=== PATIENT | female | born 1945 | race Caucasian/White ===

== ENCOUNTER → 2018-11-20 | Outpatient (CLI) | payer BC, MEDICARE ==
[~2018-11-20] MED LIST: CALC-80 PO; DIPH25TA82 PO; FLAX100011 PO; FLUT16SP22 NSEACH; GABA-488 PO; LORA10CA PO; MELO-195 PO; MULT-608 PO; OMEG1CAP51 PO; OXYC-12 PO; PNT40TEC PO; RANI150C11 PO; SIMV20TA3 PO; TRAM50TA2 PO; VITA1CAP21 PO
--- NOTE | 2018-11-20 10:43 | Diagnostic Imaging Report ---
Indication: Worsening pain. Findings: The severe glenohumeral arthritis with bone on bone and joint space obliteration essentially present with articular sclerosis, osteophytes and prominent subcortical cysts in the humeral head. AC joint appeared unremarkable. No opaque loose body is found. Impression: Severe arthritic changes to the glenohumeral joint Dictated by: Dictated on workstation # [id number]
== END ==
LOC: RAD FS 10:16
PROVIDERS: ATTEND Nurse Practitioner
DX: M19.012 Primary osteoarthritis, left shoulder (principal)
CPT/HCPCS: 73030

== ENCOUNTER 2019-08-30 14:55 | Emergency (ER) | payer BC ==
[~2019-08-30] VITALS: Ht 149 cm; Wt 84.0 kg
[~2019-08-30 14:55] MED LIST changes: -NS IV 500 ML 500 ML ONE
[2019-08-30 15:56] LABS: BASOPHILS % (AUTO) 0 % (0-10); EOSINOPHILS # (AUTO) 0.1 10^3/uL (0.0-0.3); EOSINOPHILS % (AUTO) 1 % (0-10); HEMATOCRIT 29 % (35-52); HEMOGLOBIN 7.9 G/DL (11.5-16.0); LYMPHOCYTES # (AUTO) 0.8 X 10^3 (1.0-4.0); LYMPHOCYTES % (AUTO) 8 % (12-44); MEAN CORPUSCULAR HEMOGLOBIN 18 PG (25-34); MEAN CORPUSCULAR HGB CONC 27 G/DL (32-36); MEAN CORPUSCULAR VOLUME 68 FL (80-99); MEAN PLATELET VOLUME 9.1 FL (7.4-10.4); MONOCYTES # (AUTO) 0.5 X 10^3 (0.0-1.0); MONOCYTES % (AUTO) 5 % (0-12); NEUTROPHILS % (AUTO) 86 % (42-75); PLATELET COUNT 265 10^3/uL (130-400); RED CELL DISTRIBUTION WIDTH 20.4 % (10.0-14.5); WHITE BLOOD COUNT 10.5 10^3/uL (4.3-11.0)
[2019-08-30 16:07] LABS: PROTHROMBIN TIME PATIENT 14.1 SEC (12.2-14.7)
[2019-08-30 16:09] LABS: ALANINE AMINOTRANSFERASE 12 U/L (0-55); ALBUMIN 4.2 GM/DL (3.2-4.5); ALKALINE PHOSPHATASE 54 U/L (40-136); BILIRUBIN,TOTAL 0.3 MG/DL (0.1-1.0); BUN/CREATININE RATIO 16; CALCIUM 9.3 MG/DL (8.5-10.1); CARBON DIOXIDE 27 MMOL/L (21-32); CHLORIDE 107 MMOL/L (98-107); GFR ESTIMATED > 60; GLUCOSE 134 MG/DL (70-105); POTASSIUM 3.4 MMOL/L (3.6-5.0); SODIUM 146 MMOL/L (135-145); TOTAL PROTEIN 6.6 GM/DL (6.4-8.2)
--- NOTE | 2019-08-30 16:16 | Diagnostic Imaging Report ---
PROCEDURE: CT head and CT cervical spine without contrast. TECHNIQUE: Multiple contiguous axial images were obtained through the brain and cervical spine without the use of intravenous contrast. Sagittal and coronal reformations through the cervical spine were then performed. Auto Exposure Controls were utilized during the CT exam to meet ALARA standards for radiation dose reduction. INDICATION: Fall. COMPARISON: No prior studies are available for comparison. FINDINGS: CT HEAD: Ventricles and sulci are within normal limits. Moderate periventricular hypodensity is noted consistent with chronic microvascular ischemia. There is no sulcal effacement or midline shift. No acute intra-axial or extra-axial hemorrhage is detected. Cisterns are patent. Visualized paranasal sinuses are clear. IMPRESSION: Changes of chronic microvascular ischemia. No acute intracranial process is detected. CT CERVICAL SPINE: Alignment is normal. There is multilevel degenerative disc disease with variable disc space narrowing and marginal spurring. No fractures are seen. Prevertebral tissues are within normal limits. Odontoid is intact. IMPRESSION: No acute bony abnormality is detected. Dictated by: Dictated on workstation # [id number]
[2019-08-30 16:19] LABS: ANISOCYTOSIS MODERATE; BASOPHILS % (MANUAL) 1 %; EOSINOPHILS % (MANUAL) 1 %; HYPOCHROMASIA MODERATE; LYMPHOCYTES % (MANUAL) 8 %; MICROCYTOSIS MARKED; MONOCYTES % (MANUAL) 7 %; NEUTROPHILS % (MANUAL) 83 %; POIKILOCYTOSIS SLIGHT; POLYCHROMASIA SLIGHT
--- NOTE | 2019-08-30 16:20 | Diagnostic Imaging Report ---
INDICATION: Fall. Confusion. FINDINGS: Portable chest. There is mild cardiomegaly. The lungs are well aerated. There are no infiltrates. No evidence of pulmonary edema. No pneumothorax or pleural effusion. There is moderate scoliosis. IMPRESSION: Cardiomegaly and scoliosis without acute change. Dictated by: Dictated on workstation # [id number]
[2019-08-30 17:06] LABS: BILIRUBIN,URINE NEGATIVE (NEGATIVE); CLARITY,URINE CLEAR; COLOR,URINE YELLOW; GLUCOSE, URINE (UA) NEGATIVE (NEGATIVE); KETONES,URINE NEGATIVE (NEGATIVE); LEUKOCYTE ESTERASE ,URINE NEGATIVE (NEGATIVE); NITRITE,URINE NEGATIVE (NEGATIVE); PH,URINE 7.5 (5-9); PROTEIN,URINE NEGATIVE (NEGATIVE)
[2019-08-30 17:15] LABS: BACTERIA,URINE NEGATIVE /HPF; WBC,URINE RARE /HPF
--- NOTE | 2019-08-30 18:29 | ED General ---
General Chief Complaint: Head/Cervical Problems Stated Complaint: FALL/HEAD INJ Nursing Triage Note: PATIENT STATES THAT SHE FELL TWICE TODAY, FAMILY STATES THAT SHE IS HAVING TROUBLE PUTTING WORDS TOGETHER AND IS CONFUSED WHICH IS VERY OUT OF THE ORDINARY FOR HER. Nursing Sepsis Screen: No Definite Risk Source of Information: Patient Exam Limitations: No Limitations History of Present Illness Date Seen by Provider: Aug 30, 2019 Time Seen by Provider: 16:30 Initial Comments To Er by POV with c/o fall x2 today related to left leg "giving out". Hx of low back pain with intermittent sciatica down left side. Has had intermittent confusion. Timing/Duration: 12-24 Hours Severity: Moderate Associated Systoms: Denies Symptoms Allergies and Home Medications Allergies Coded Allergies: No Known Drug Allergies (Unverified , 07/30/14) Home Medications Calcium Carbonate/Vitamin D3 1 Each Tablet, 1 TAB PO BID, (Reported) Diphenhydramine Hcl 25 Mg Tablet, 25 MG PO BID, (Reported) Flaxseed 1,000 Mg Capsule, 1,000 MG PO DAILY, (Reported) Fluticasone Propionate 16 Gm Naspr, 2 SPRAYS NSEACH DAILY, (Reported) Gabapentin 300 Mg Capsule, 300 MG PO TID, (Reported) Loratadine 10 Mg Capsule, 10 MG PO DAILY, (Reported) Lampe-3 Fatty Acids/Fish Oil 1 Each Capsule, 1 EACH PO DAILY, (Reported) Oxycodone Hcl/Acetaminophen 1 Each Tablet, 1 TAB PO Q4H PRN for PAIN, (Reported) PRN PAIN Pantoprazole Sod 40 Mg Tab, 40 MG PO DAILY, (Reported) Ranitidine Hcl 150 Mg Capsule, 150 MG PO HS, (Reported) Simvastatin 20 Mg Tablet, 20 MG PO HS, (Reported) Tramadol Hcl 50 Mg Tablet, 50 MG PO Q6H PRN for PAIN, (Reported) PRN PAIN Vitamin B Complex 1 Cap Capsule, 1 CAP PO DAILY, (Reported) Patient Home Medication List Home Medication List Reviewed: Yes Review of Systems Review of Systems Constitutional: see HPI EENTM: see HPI Respiratory: no symptoms reported Cardiovascular: no symptoms reported Genitourinary: no symptoms reported Musculoskeletal: no symptoms reported Skin: no symptoms reported Psychiatric/Neurological: No Symptoms Reported Hematologic/Lymphatic: No Symptoms Reported Past Wzsteuu-Thzxbs-Wyhhqv Hx Patient Social History Alcohol Use: Denies Use Recreational Drug Use: No Smoking Status: Never a Smoker 2nd Hand Smoke Exposure: No Recent Foreign Travel: No Contact w/Someone Who Travel: No Recent Infectious Disease Expo: No Immunizations Up To Date Date of Pneumonia Vaccine: Jun 29, 2011 Past Medical History Surgeries: Yes (breast lumpectomy) Respiratory: No Cardiac: No Neurological: No Gastrointestinal: Yes (constipation) Musculoskeletal: Yes Endocrine: Yes Blood Disorders: No Physical Exam Vital Signs Vital Signs - First Documented 08/30/19 15:17 Temp 36.7 Pulse 55 Resp 20 B/P (MAP) 143/66 (91) Pulse Ox 97 Capillary Refill : Less Than 3 Seconds Height, Weight, BMI Height: 5'" Weight: 185lbs. oz. 83.320164hl; 37.00 BMI Method: General Appearance: No Apparent Distress, WD/WN, Other (GCS 15 alert and oriented pleasant no confusion conversation appropriate) Eyes: Bilateral Eye Normal Inspection, Bilateral Eye PERRL, Bilateral Eye EOMI HEENT: PERRL/EOMI, TMs Normal Neck: Full Range of Motion, Normal Inspection Respiratory: No Accessory Muscle Use, No Respiratory Distress Cardiovascular: Regular Rate, Rhythm, Normal Peripheral Pulses Gastrointestinal: Normal Bowel Sounds, Non Tender, Soft Extremity: Normal Capillary Refill, Normal Inspection Neurologic/Psychiatric: Alert, Oriented x3 Skin: Normal Color, Warm/Dry Progress/Results/Core Measures Suspected Sepsis Recent Fever Within 48 Hours: No Infection Criteria Present: None New/Unexplained Altered Menta: Yes Sepsis Screen: No Definite Risk SIRS Temperature: Pulse: 55 Respiratory Rate: 20 Laboratory Tests 08/30/19 15:30: White Blood Count 10.5 Blood Pressure 143 /66 Mean: 91 Laboratory Tests 08/30/19 15:30: Creatinine 0.70, INR Comment 1.0, Platelet Count 265, Total Bilirubin 0.3 Results/Orders Lab Results Laboratory Tests Test 08/30/19 15:30 08/30/19 17:00 Range/Units White Blood Count 10.5 4.3-11.0 10^3/uL Red Blood Count 4.34 L 4.35-5.85 10^6/uL Hemoglobin 7.9 L 11.5-16.0 G/DL Hematocrit 29 L 35-52 % Mean Corpuscular Volume 68 L 80-99 FL Mean Corpuscular Hemoglobin 18 L 25-34 PG Mean Corpuscular Hemoglobin Concent 27 L 32-36 G/DL Red Cell Distribution Width 20.4 H 10.0-14.5 % Platelet Count 265 130-400 10^3/uL Mean Platelet Volume 9.1 7.4-10.4 FL Neutrophils (%) (Auto) 86 H 42-75 % Lymphocytes (%) (Auto) 8 L 12-44 % Monocytes (%) (Auto) 5 0-12 % Eosinophils (%) (Auto) 1 0-10 % Basophils (%) (Auto) 0 0-10 % Neutrophils # (Auto) 9.0 H 1.8-7.8 X 10^3 Lymphocytes # (Auto) 0.8 L 1.0-4.0 X 10^3 Monocytes # (Auto) 0.5 0.0-1.0 X 10^3 Eosinophils # (Auto) 0.1 0.0-0.3 10^3/uL Basophils # (Auto) 0.0 0.0-0.1 10^3/uL Neutrophils % (Manual) 83 % Lymphocytes % (Manual) 8 % Monocytes % (Manual) 7 % Eosinophils % (Manual) 1 % Basophils % (Manual) 1 % Polychromasia SLIGHT Hypochromasia MODERATE Poikilocytosis SLIGHT Anisocytosis MODERATE Microcytosis MARKED Prothrombin Time 14.1 12.2-14.7 SEC INR Comment 1.0 0.8-1.4 Sodium Level 146 H 135-145 MMOL/L Potassium Level 3.4 L 3.6-5.0 MMOL/L Chloride Level 107 98-107 MMOL/L Carbon Dioxide Level 27 21-32 MMOL/L Anion Gap 12 5-14 MMOL/L Blood Urea Nitrogen 11 7-18 MG/DL Creatinine 0.70 0.60-1.30 MG/DL Estimat Glomerular Filtration Rate > 60 BUN/Creatinine Ratio 16 Glucose Level 134 H 70-105 MG/DL Calcium Level 9.3 8.5-10.1 MG/DL Corrected Calcium 9.1 8.5-10.1 MG/DL Total Bilirubin 0.3 0.1-1.0 MG/DL Aspartate Amino Transf (AST/SGOT) 13 5-34 U/L Alanine Aminotransferase (ALT/SGPT) 12 0-55 U/L Alkaline Phosphatase 54 40-136 U/L Total Protein 6.6 6.4-8.2 GM/DL Albumin 4.2 3.2-4.5 GM/DL Urine Color YELLOW Urine Clarity CLEAR Urine pH 7.5 5-9 Urine Specific [place] 1.010 L 1.016-1.022 Urine Protein NEGATIVE NEGATIVE Urine Glucose (UA) NEGATIVE NEGATIVE Urine Ketones NEGATIVE NEGATIVE Urine Nitrite NEGATIVE NEGATIVE Urine Bilirubin NEGATIVE NEGATIVE Urine Urobilinogen 0.2 < = 1.0 MG/DL Urine Leukocyte Esterase NEGATIVE NEGATIVE Urine RBC (Auto) 1+ H NEGATIVE Urine RBC 10-25 H /HPF Urine WBC RARE /HPF Urine Squamous Epithelial Cells NONE /HPF Urine Crystals NONE /LPF Urine Bacteria NEGATIVE /HPF Urine Casts NONE /LPF Urine Mucus NEGATIVE /LPF Urine Culture Indicated NO My Orders Orders - MARK GASPAR APRN Ct Head/Cervical Spine Wo (08/30/19 15:47) Chest 1 View, Ap/Pa Only (08/30/19 15:47) Cbc With Automated Diff (08/30/19 15:47) Comprehensive Metabolic Panel (08/30/19 15:47) Ua Culture If Indicated (08/30/19 15:47) Ed Iv/Invasive Line Start (08/30/19 15:47) Protime With Inr (08/30/19 15:47) Manual Differential (08/30/19 15:30) Red Cells Leukocytes Reduced (08/30/19 18:19) Type And Screen (08/30/19 18:19) Vital Signs/I&O 08/30/19 15:17 Temp 36.7 Pulse 55 Resp 20 B/P (MAP) 143/66 (91) Pulse Ox 97 Capillary Refill : Less Than 3 Seconds Blood Pressure Mean: 91 POS Departure Communication (Admissions) Spoke with Dr. Fischer, we will give one unit of red cells down here in the emergency room, DC to home. Patient has a history of anemia, states she has had have blood transfusion in the past, she is taking an iron supplement. 195-called report the patient has an antibody, it'll be one more hour before the blood is ready, we'll discharge her from ER since her vitals are stable, mentating well, and it sounds like this is chronic. I will have her go from here up to the medical floor directly for a unit of packed red cells to be transfused tonight outpatient on fourth floor then discharged home Impression Primary Impression: Symptomatic anemia Disposition: 01 HOME, SELF-CARE Condition: Stable Departure-Patient Inst. Decision time for Depature: 18:29 Referrals: JENELLE ROONEY MD (PCP/Family) Primary Care Physician Patient Instructions: NO INSTRUCTIONS GIVEN Add. Discharge Instructions: 1. Go directly from here to room 512 upstairs to receive a unit of red blood cells to be transfused, once that has transfused, barring any complications you will be discharged home tonight..All discharge instructions reviewed with patient and/or family. Voiced understanding. Copy Copies To 1: JENELLE ROONEY MD, PETER J APRN Aug 30, 2019 18:29 POS
[2019-08-30 20:09] VITALS: BP 126/66
--- NOTE | 2019-08-30 20:09 | NUR ---
AFTER DISCHARGE PT WILL GO TO ROOM 512 FOR OUTPATIENT BLOOD TRANSFUSION. REPORT TO MEMO SHETTY.
--- OUTSIDE RECORDS SUMMARY | 2019-09-25 23:54 | XMS REPORT | Encounter Summary ---
Author Author [facility] Organization [facility] Address Unknown Phone Unavailable Care Team Providers Care Smalltalk Developer Name Role Phone Raj Don PCP Encounter Details Care Team Description Date Type Department ProviderDedrick MD [address] [place] [address] 09/12/2019 Orders Only [facility] [address] [facility] [address] [place] [address] Social History Date Tobacco Use Types Packs/Day Years Used Never Assessed Sex Assigned at Date Recorded Not on file Industry Job Start Date Occupation Not on file Not on file Not on file Travel End Travel History Travel Start No recent travel history available. documented as of this encounter Plan of Treatment Care Team Description Date [place] [address] [id number] 10/18/2019 Initial consult Medical Oncology documented as of this encounter Procedures Comments Procedure Name Priority Date/Time Associated Diag nosis LAB OUTSIDE RECORD Routine 09/12/2019 documented in this encounter Results * Lab Outside Record (09/12/2019) Specimen Blood Narrative Performed At This result has an attachment that is n ot available. documented in this encounter Visit Diagnoses Not on filedocumented in this encounter
--- OUTSIDE RECORDS SUMMARY | 2019-09-25 23:54 | XMS REPORT | Clinical Summary ---
Author Author [facility] Organization [facility] Address Unknown Phone Unavailable Care Team Providers Care Fine Grade Bulldozer Operator Name Role Phone Canelo Donwell PCP Allergies Not on File Medications Not on file Active Problems Not on file Encounters Care Team Description Date Type Specialty Dedrick Harris MD 09/12/2019 Orders Only Medical Oncology No, Ordering D, DO 09/12/2019 Documentation Medical Oncology from Last 3 Months Social History Date Tobacco Use Types Packs/Day Years Used Never Assessed Sex Assigned at Date Recorded Not on file Industry Job Start Date Occupation Not on file Not on file Not on file Travel End Travel History Travel Start No recent travel history available. Last Filed Vital Signs Not on file Plan of Treatment Care Team Description Date [place] [address] [address] 10/18/2019 Initial consult Medical Oncology Health Maintenance Due Date Last Done Comments Td # 1945 Colorectal Screening via 1993 Colonoscopy Mammogram Screening 1993 Zoster Vaccine# (1 of 2) 1993 Fall Risk Assessment # 2008 Osteoporosis Screening 2008 Pneumococcal Vaccine: 65+ 2008 Years (1 of 2 - PCV13) Influenza Vaccine (#1) 2019 Procedures Comments Procedure Name Priority Date/Time Associated Diag nosis LAB OUTSIDE RECORD Routine 09/12/2019 from Last 3 Months Results * Lab Outside Record (09/12/2019) Specimen Blood Narrative Performed At This result has an attachment that is n ot available. from Last 3 Months Insurance Type Payer Benefit Subscriber ID Effective Phone Address Plan / Dates Group Medicare MEDICARE MEDICARE xxxxxxxxxxx 2008-P [place] PART A [facility] MAREN xxxxxxxxx 8-P FEDERAL resent [id number] 1 Nimisha Hodges Personal/F Self 1945 [id number] (Home) [place], [place] [address] Advance Directives For more information, please contact: [phone] Patient Tin Pourer Explanation Type Date Recorded Advance Directives and Living Will Power of Medical Tech
--- OUTSIDE RECORDS SUMMARY | 2019-09-25 23:54 | XMS REPORT | Encounter Summary ---
Author Author [facility] Organization [facility] Address Unknown Phone Unavailable Care Team Providers Care Public Relations Coordinator Name Role Phone Canelo Donwell PCP Encounter Details Care Team Description Date Type Department No, Ordering D, DO [phone] 09/12/2019 Documentation [facility] [address] [facility] [address] [place] [address] Social History Date Tobacco Use Types Packs/Day Years Used Never Assessed Sex Assigned at Date Recorded Not on file Industry Job Start Date Occupation Not on file Not on file Not on file Travel End Travel History Travel Start No recent travel history available. documented as of this encounter Plan of Treatment Care Team Description Date [place] [address] [address] [phone] 10/18/2019 Initial consult Medical Oncology documented as of this encounter Visit Diagnoses Not on filedocumented in this encounter
== END 2019-08-30 20:15 | disposition home or self-care (01) ==
LOC: EDUNIT# 14:55 → ER 14:57
DX: D64.9 Anemia, unspecified (principal); Z79.51 Long term (current) use of inhaled steroids
CPT/HCPCS: 36415; 51701; 70450; 71045; 72125; 80053; 81000; 85007; 85027; 85610

== ENCOUNTER → 2019-08-30 | Outpatient (CLI) | payer BC ==
[~2019-08-30] VITALS: Ht 145 cm; Wt 84.1 kg
[2019-08-30] VITALS (8 sets, daily range): BP systolic 106–128; BP diastolic 66–82
[~2019-08-30] MED LIST changes: +NS IV 500 ML 500 ML ONE
--- NOTE | 2019-08-30 20:05 | NUR ---
RECEIVED REPORT FROM MARK GASPAR APRN.
--- NOTE | 2019-08-30 20:29 | NUR ---
PT ARRIVED TO ROOM 512 TO ADMINISTRATION OF 1 UNIT PRBC.
--- NOTE | 2019-08-30 20:46 | NUR ---
RECEIVED CALL FROM LAB THAT 1UNIT PRBC READY TO BE PICKED UP.
--- NOTE | 2019-08-30 20:56 | NUR ---
THIS RN VERIFIED PT NAME, , MEDICAL RECORD NUMBER, BBK ID#, BLOOD TYPE, UNIT NUMBER, BLOOD TYPE OF UNIT, AND COMPATIBILITY W/ BLOOD BANK STAFF. 1UNIT PRBC FOR THIS PT REMOVED FROM BLOOD BANK BY THIS RN.
--- NOTE | 2019-08-30 21:14 | NUR ---
500ML 0.9% NORMAL SALINE REMOVED FROM OMNICELL TO RUN WITH BLOOD ADMINISTRATION. NON-ADMINISTERED ON E-NOV.
--- NOTE | 2019-08-30 21:25 | NUR ---
BLOOD VERIFIED W/ SLIP LASTER DUE TO INABILITY TO SCAN BBK ID BAND.
--- NOTE | 2019-08-30 21:30 | NUR ---
TRANSFUSION OF 1UNIT PRBC STARTED. Addendum: 08/30/19 at 2152 by RUFINO PHLILIPS RN INFUSION BEGAN AT 75ML/HR FOLLOWING INFUSION OF 50ML 0.9% NORMAL SALINE.
--- NOTE | 2019-08-30 21:45 | NUR ---
VS REPEATED AND NOTED TO BE STABLE. INFUSION INCREASED TO 125ML/HR.
[2019-08-31 00:30] VITALS: BP 132/77
--- NOTE | 2019-08-31 00:30 | NUR ---
TRANSFUSION COMPLETE AND POSTTRANSFUSION VS STABLE. SEE VS FLOW SHEET. PT WHEELED OUT TO PERSONAL CONVEYANCE BY MEMO IBRAHIM WITHOUT INCIDENT. PT INSTRUCTED TO FOLLOW UP WITH DR. ROONEY.
--- NOTE | 2019-09-03 02:08 | NUR ---
LATE NOTE ENTRY: 08/30/19 AT 2100: VERBAL CONSENT OBTAINED FROM PT FOR ADMINISTRATION OF BLOOD PRODUCTS. VERBAL CONSENT WITNESSED BY COMMUNITY DEVELOPMENT COORDINATOR.
== END ==
LOC: 4THo 20:07
PROVIDERS: ATTEND Emergency Medicine
DX: E87.71 Transfusion associated circulatory overload (principal)
CPT/HCPCS: 36430; 86850; 86870; 86900; 86901; 86902; 86922

== ENCOUNTER → 2019-11-05 | Outpatient (CLI) | payer BC ==
[2019-11-05 15:33] LABS: BASOPHILS % (AUTO) 1 % (0-10); EOSINOPHILS # (AUTO) 0.2 10^3/uL (0.0-0.3); EOSINOPHILS % (AUTO) 3 % (0-10); HEMATOCRIT 39 % (35-52); HEMOGLOBIN 11.8 G/DL (11.5-16.0); LYMPHOCYTES % (AUTO) 16 % (12-44); MEAN CORPUSCULAR HEMOGLOBIN 25 PG (25-34); MEAN CORPUSCULAR HGB CONC 31 G/DL (32-36); MEAN CORPUSCULAR VOLUME 83 FL (80-99); MONOCYTES # (AUTO) 0.4 X 10^3 (0.0-1.0); MONOCYTES % (AUTO) 7 % (0-12); NEUTROPHILS # (AUTO) 4.6 X 10^3 (1.8-7.8); NEUTROPHILS % (AUTO) 73 % (42-75); PLATELET COUNT 223 10^3/uL (130-400); RED CELL DISTRIBUTION WIDTH 18.8 % (10.0-14.5); WHITE BLOOD COUNT 6.3 10^3/uL (4.3-11.0)
[2019-11-05 15:53] LABS: ALANINE AMINOTRANSFERASE 20 U/L (0-55); ALBUMIN 4.1 GM/DL (3.2-4.5); ALKALINE PHOSPHATASE 44 U/L (40-136); BILIRUBIN,TOTAL 0.4 MG/DL (0.1-1.0); BUN/CREATININE RATIO 14; CARBON DIOXIDE 29 MMOL/L (21-32); CHLORIDE 104 MMOL/L (98-107); GFR ESTIMATED > 60; GLUCOSE 100 MG/DL (70-105); POTASSIUM 4.2 MMOL/L (3.6-5.0); SODIUM 142 MMOL/L (135-145)
== END ==
LOC: LAB 15:08
PROVIDERS: ATTEND Internal Medicine Hematology & Oncology
DX: C50.212 Malignant neoplasm of upper-inner quadrant of left female breast (principal)
CPT/HCPCS: 36415; 80053; 82378; 85025; 86300

== ENCOUNTER 2021-12-22 13:26 | Outpatient (CLI) | payer BC ==
[~2021-12-22] VITALS: Ht 147.3 cm; Wt 49.0 kg
[2021-12-22] MEDS ORDERED: DIPH25CA79 PO (14:13)
[2021-12-22] MEDS ORDERED: LVF250T PO (14:13)
[2021-12-22] MEDS ORDERED: MELO15TA14 PO (14:13)
[2021-12-22] MEDS ORDERED: SIMV20TA26 PO (14:13)
[2021-12-22] MEDS ORDERED: MORP50CA PO (14:13)
[2021-12-22] MEDS ORDERED: ACET-2840 PO (14:13)
[2021-12-22] MEDS ORDERED: ANAS1TAB50 PO (14:13)
[2021-12-22] MEDS ORDERED: CETI10TA49 PO (14:13)
[2021-12-22] MEDS ORDERED: IRON1TAB95 PO (14:13)
[2021-12-22] MEDS ORDERED: BACL10TA PO (14:13)
[2021-12-23] MEDS ORDERED: HYDR-3817 PO (12:29)
== END 2021-12-22 14:21 ==
LOC: PREOP 13:26
PROVIDERS: ATTEND Surgery
DX: Z01.818 Encounter for other preprocedural examination (principal)

== ENCOUNTER 2021-12-23 11:16 | Day surgery (SDC) | payer BC ==
[~2021-12-23] VITALS: Ht 147.3 cm; Wt 49.0 kg
[2021-12-23] VITALS (12 sets, daily range): BP systolic 96–152; BP diastolic 31–97
[~2021-12-23 11:16] MED LIST changes: +ACET-2840 PO; +ANAS1TAB50 PO; +BACL10TA PO; +CETI10TA49 PO; +DIPH25CA79 PO; +IRON1TAB95 PO; +LVF250T PO; +MELO15TA14 PO; +MORP50CA PO; +SIMV20TA26 PO
[2021-12-23] MEDS ORDERED: ceFAZolin INJECTION 1,000 MG VIAL IV ONE (11:45)
[2021-12-23] MEDS: LACTATED RINGERS 1,000 ML IV PRN ×2 (11:59→15:20)
[2021-12-23] MEDS ORDERED: HYDR-3817 PO (12:29)
[2021-12-23] MEDS ORDERED: morphine INJ 10 MG/ML 1ML (SYR OR VIAL) IVP PRN (12:30)
[2021-12-23] MEDS ORDERED: ONDANSETRON 4 MG/2 ML (SDV) Z0FRAN IVP PRN ×2 (12:30→16:15)
[2021-12-23] MEDS ORDERED: ACETAMINOPHEN 325 MG TABLET PO PRN (12:30)
[2021-12-23] MEDS ORDERED: HYDROcodone/APAP 5 MG/325 MG (LORTAB) TAB PO ONE (12:30)
--- NOTE | 2021-12-23 12:30 | Discharge Inst-Surgical ---
D/C Lap Instructions-KIDO Reconcile Patient Problems Problems Reviewed?: Yes New, Converted, or Re-Newed RX: RX on Chart Follow Up Appt in 2 weeks Activity as tolerated No driving for 24 hours No driving while on pain medications Incentive Spirometry use every 2 hours while awake Regular Diet Symptoms to Report: Fever over 101 degree F, Nausea/Vomiting Infection Signs and Symptoms to report: Increased redness, Foul odor of wound, Increased drainage Bathing instructions: May shower Operative Area Clean/Dry; Keep incision clean/dry If any problems/questions: Contact your physician or go to Emergency Room ISABEL CANNON APRN Dec 23, 2021 12:29
--- NOTE | 2021-12-23 12:31 | Progress Note-Pre Operative ---
Pre-Operative Progress Note H&P Reviewed The H&P was reviewed, patient examined and no changes noted. Date Seen by Provider: Dec 23, 2021 Time Seen by Provider: 12:30 Date H&P Reviewed: Dec 23, 2021 Time H&P Reviewed: 12:25 Pre-Operative Diagnosis: Symptomatic Chronic calculous cholecysitis ISABEL CANNON APRN Dec 23, 2021 12:31
[2021-12-23] MEDS ORDERED: LIDOCAINE/EPI 2% 1:200,00 (XYLOCAINE) 20 ML VIAL ONE (14:06)
[2021-12-23] MEDS ORDERED: proPOfol 200 MG/20 ML (DIPRIVAN) VIAL IV ONE (14:16)
[2021-12-23] MEDS ORDERED: LIDOCAINE PF 2% 5 ML (XYLOCAINE) VIAL ONE (14:16)
[2021-12-23] MEDS ORDERED: fentaNYL INJ 100 MCG/2 ML AMP ONE ×2 (14:16→14:33)
[2021-12-23] MEDS ORDERED: ROCURONIUM 10 MG/ML 5 ML SYRINGE IV ONE (14:16)
[2021-12-23] MEDS ORDERED: fentaNYL INJ 100 MCG/2 ML AMP IVP ONE (14:30)
[2021-12-23] MEDS ORDERED: ONDANSETRON 4 MG/2 ML (SDV) Z0FRAN ONE ×2 (15:02→16:33)
[2021-12-23] MEDS ORDERED: SEVOFLURANE (ULTANE) 15 ML INHAL SOLN ONE (15:41)
[2021-12-23] MEDS ORDERED: GLYCOPYRROLATE 0.2 MG/ML (ROBINUL) 2 ML VIAL ONE (15:46)
[2021-12-23] MEDS ORDERED: NEOSTIGMINE 3 MG/3 ML VIAL ONE (15:46)
--- NOTE | 2021-12-23 15:52 | Progress Note-Post Operative ---
Post-Operative Progess Note Surgeon (s)/Freight Tallier (s) Surgeon SHANNAN AUSTIN MD Freight Tallier: ronny sanchez OFFC SPEC Pre-Operative Diagnosis Symptomatic Chronic calculous cholecysitis Post-Operative Diagnosis same Procedure & Operative Findings Date of Procedure 12/23/21 Procedure Performed/Findings laparoscopic cholecystectomy Anesthesia Type get Estimated Blood Loss Estimated blood loss (mL): minimal Specimens/Packing Specimens Removed gallbladder SHANNAN AUSTIN MD Dec 23, 2021 15:52
--- NOTE | 2021-12-23 16:03 | Anesthesia-General Post-Op ---
General Patient Condition Mental Status/LOC: Same as Preop Cardiovascular: Satisfactory Nausea/Vomiting: Absent Respiratory: Satisfactory Pain: Controlled Complications: Absent Post Op Complications Complications None Follow Up Care/Instructions Patient Instructions None needed. Anesthesia/Patient Condition Patient Condition Patient is doing well, no complaints, stable vital signs, no apparent adverse anesthesia problems. No complications reported per nursing. SUMEET ADDISON CRNA Dec 23, 2021 16:03
[2021-12-23] MEDS ORDERED: morphine INJ 10 MG/ML 1ML (SYR OR VIAL) ONE (16:06)
[2021-12-23] MEDS ORDERED: MEPERIDINE (DEMEROL) INJ 50 MG/ML IVP ONE (16:15)
[2021-12-23] MEDS ORDERED: morphine INJ 10 MG/ML 1ML (SYR OR VIAL) IVP ONE (16:15)
[2021-12-23] MEDS ORDERED: HYDROcodone/APAP 5 MG/325 MG (LORTAB) TAB ONE (17:26)
--- NOTE | 2021-12-23 20:47 | OPERATIVE REPORT ---
DATE OF SERVICE: 12/23/2021 ATTENDING PRIMARY CARE PHYSICIAN: Dr. Raj Don. PREOPERATIVE DIAGNOSIS: Symptomatic chronic calculous cholecystitis. POSTOPERATIVE DIAGNOSIS: Hydrops of the gallbladder. PROCEDURE: Laparoscopic cholecystectomy. SURGEON: Shannan Austin MD TRAILER STEERER: Saul De Los Santos APRN. ANESTHESIA: General endotracheal. ESTIMATED BLOOD LOSS: Minimal. FINDINGS: A stone at the cystic duct and hydrops of the gallbladder. DISPOSITION: The patient tolerated the procedure well. INDICATIONS: The patient is a 76-year-old female who has had a several-year history of what she felt was acid indigestion and gastritis; however, she states that the pain became more significant and radiated towards the back. She also had reported episodes of nausea and vomiting, which became much more frequent as well as more severe. She was seen by her physician. An ultrasound performed, which did show a stone wedged into the cystic duct consistent with chronic calculous cholecystitis. DESCRIPTION OF PROCEDURE: The patient was brought to the operating room, laid supine on the table. After adequate IV pain and sedative medications and general endotracheal intubation, the abdomen was prepped and draped in standard surgical fashion. A 0.5% Marcaine with epinephrine was used to anesthetize overlying skin in the left upper abdominal quadrant and a transverse skin incision made using a 15 blade. An 0 silk suture was applied to the medial aspect of incision for retraction and a Veress needle inserted with a low opening pressure of 0 mmHg and the abdomen was then insufflated to 15 mmHg pressure. The Veress needle removed and a 5 mm XL trocar placed followed by a 5 mm 45-degree angle laparoscope visualizing the peritoneal cavity. A 4-quadrant abdominal exploration was performed. There was a distended gallbladder with mild gallbladder wall thickening. Under direct visualization, we then proceeded to place a supraumbilical 10 mm port after the skin and peritoneal lining were anesthetized using 0.5% Marcaine with epinephrine and a transverse skin incision made using a 15 blade. In a similar manner, a right upper abdominal quadrant 5 mm port was placed. The patient was then placed in reverse Trendelenburg position as well as plane right side up, left side down. The fundus of the gallbladder was then retracted anteriorly and superiorly. The hepatoduodenal ligament was then dissected using blunt dissection as well as electrocautery using the hook instrument as well as a [place] dissector. The entire critical view of safety was identified including the triangle of Calot as well as the cystic duct and artery as the only two structures going into the gallbladder as well as cystic plate behind the proximal gallbladder. A timeout was then taken and the cystic duct and artery were then clipped proximally and distally and cut with EndoShears. The gallbladder was then dissected off the liver bed using electrocautery and hook instrument with visualization of good hemostasis as well as no leaking ducts of Luschka. The gallbladder was removed through the 10 mm port site using an EndoCatch bag. The 10 mm port site fascia and peritoneum were then closed under direct visualization using a Jairo-Suma device and 0 Vicryl suture. The abdomen was desufflated and remaining ports removed. All skin incisions were closed using 4-0 Monocryl running subcuticular sutures. Wounds were then cleaned and covered with Dermabond. The patient tolerated the procedure well. We will start IV normal pain medication as well as a clear liquid diet. Once she is tolerating clears, has good pain control with oral pain medications, ambulating well, we will discharge her home where she will be instructed to do no heavy lifting or exertion for the next two weeks. Job ID: [id number] DocumentID: [id number] Dictated Date: 12/23/2021 15:58:24 Timber Harvester Operator Date: 12/23/2021 20:46:34 Dictated By: SHANNAN AUSTIN MD
== END 2021-12-23 18:20 ==
LOC: SDC 11:16
PROVIDERS: ATTEND Surgery
DX: K80.10 Calculus of gallbladder with chronic cholecystitis without obstruction (principal); K82.8 Other specified diseases of gallbladder; E11.9 Type 2 diabetes mellitus without complications; Z87.891 Personal history of nicotine dependence
CPT/HCPCS: 87081; 94664

== ENCOUNTER 2022-01-22 12:11 | Inpatient (IN) | payer MEDICARE, BC ==
[~2022-01-22] VITALS: Ht 149.9 cm; Wt 60.6 kg
[~2022-01-22 12:11] MED LIST changes: +HYDR-3817 PO
[2022-01-22] MEDS ORDERED: LACTATED RINGERS 1,000 ML IV SCH (18:45)
[2022-01-22] MEDS ORDERED: ONDANSETRON 4 MG/2 ML (SDV) Z0FRAN IVP PRN (18:45)
[2022-01-22] MEDS ORDERED: IOHEXOL 350 MG/ML 100 ML (OMNIPAQUE 350) VIAL IV ONE (19:30)
[2022-01-22] MEDS ORDERED: PIPERACILLIN SODIUM/TAZOBACTAM 4.5 GM in NS (IVPB) 100 ML IV ONE (19:30)
[2022-01-22] MEDS ORDERED: HOLD METFORMIN - RECEIVED CONTRAST 20 ML VIAL IV SCH (19:30)
[2022-01-22] MEDS ORDERED: NS 100 ML (IVPB) BAG IV ONE (19:30)
[2022-01-22 19:43] LABS: CLARITY,URINE CLEAR; COLOR,URINE ORANGE; GLUCOSE, URINE (UA) TRACE (NEGATIVE); KETONES,URINE 1+ (NEGATIVE); LEUKOCYTE ESTERASE ,URINE TRACE (NEGATIVE); NITRITE,URINE NEGATIVE (NEGATIVE); PROTEIN,URINE 2+ (NEGATIVE)
[2022-01-22 19:50] LABS: BILIRUBIN,URINE 2+ (NEGATIVE)
[2022-01-22 19:52] LABS: BACTERIA,URINE LARGE /HPF
--- NOTE | 2022-01-22 20:30 | Progress Note-Pre Operative ---
Pre-Operative Progress Note H&P Reviewed The H&P was reviewed, patient examined and no changes noted. Date Seen by Provider: Jan 22, 2022 Time Seen by Provider: :30 Date H&P Reviewed: Jan 22, 2022 Time H&P Reviewed: :30 Pre-Operative Diagnosis: abdominal pain/distention, leukocytosis SHANNAN AUSTIN MD Jan 22, 2022 20:30
[2022-01-22 21:20] LABS: BASOPHILS # (AUTO) 0.1 10^3/uL (0.0-0.1); BASOPHILS % (AUTO) 0 % (0-10); EOSINOPHILS # (AUTO) 0.2 10^3/uL (0.0-0.3); EOSINOPHILS % (AUTO) 1 % (0-10); HEMATOCRIT 27 % (35-52); HEMOGLOBIN 8.3 g/dL (11.5-16.0); LYMPHOCYTES # (AUTO) 0.6 10^3/uL (1.0-4.0); LYMPHOCYTES % (AUTO) 2 % (12-44); MEAN CORPUSCULAR HEMOGLOBIN 23 pg (25-34); MEAN CORPUSCULAR HGB CONC 30 g/dL (32-36); MEAN CORPUSCULAR VOLUME 76 fL (80-99); MEAN PLATELET VOLUME 9.1 fL (9.0-12.2); MONOCYTES # (AUTO) 0.5 10^3/uL (0.0-1.0); MONOCYTES % (AUTO) 2 % (0-12); NEUTROPHILS # (AUTO) 22.9 10^3/uL (1.8-7.8); NEUTROPHILS % (AUTO) 94 % (42-75); PLATELET COUNT 635 10^3/uL (130-400); WHITE BLOOD COUNT 24.5 10^3/uL (4.3-11.0)
[2022-01-22 21:31] LABS: ALBUMIN 2.1 GM/DL (3.2-4.5); POTASSIUM 5.5 MMOL/L (3.6-5.0)
[2022-01-22 21:32] LABS: CALCIUM 8.1 MG/DL (8.5-10.1)
[2022-01-22 21:33] LABS: TOTAL PROTEIN 5.5 GM/DL (6.4-8.2)
[2022-01-22 21:35] LABS: BILIRUBIN,TOTAL 2.6 MG/DL (0.1-1.0)
[2022-01-22 21:37] LABS: CREATININE SERUM 1.52 MG/DL (0.60-1.30)
[2022-01-22 21:40] LABS: MAGNESIUM 1.9 MG/DL (1.6-2.4)
[2022-01-22 21:43] LABS: LYMPHOCYTES % (MANUAL) 2 %; MONOCYTES % (MANUAL) 4 %; NEUTROPHILS % (MANUAL) 94 %; POLYCHROMASIA MARKED; TARGET CELLS SLIGHT
--- NOTE | 2022-01-22 21:50 | HISTORY AND PHYSICAL ---
DATE OF SERVICE: ATTENDING PRIMARY CARE PHYSICIAN: Dr. Raj Don. HISTORY OF PRESENT ILLNESS: The patient is a 76-year-old female, we had seen recently. She was referred over to us for several year history of what she felt was acid indigestion and gastritis; however, this became more significant and she also developed radiation of pain towards the back. This was also associated with nausea and vomiting. An ultrasound was performed, which did show a stone wedged in the cystic duct consistent with chronic calculous cholecystitis. On 12/23/2021, she underwent a laparoscopic cholecystectomy, was found to have hydrops of the gallbladder. She did well after surgery and was sent home later that day. Emergency Department physician at [facility] contacted us regarding a 1-day history of abdominal pain and distention. She had some laboratory work done and was also found to have a significantly elevated white count at 32.9. She was also found to be anemic with a hemoglobin of 7.6 and hematocrit 28.2. Due to prerenal azotemia and dehydration, she also did have elevated BUN and creatinine at 43 and 1.66 respectively. Her liver function enzymes were normal. Chest x-ray and abdominal x-ray were performed, which did show some dilated loops of small bowel, which may indicate a potential partial small-bowel obstruction. The patient was transferred to our institution due to a lack of general surgery coverage at the initial hospital. Upon examination, the patient does have some abdominal distention; however, since being admitted, she has had two large liquid bowel movements. She does have some abdominal discomfort, which is more diffuse. There are no hernias, no peritoneal signs. She does report some nausea; however, no vomiting. PAST MEDICAL HISTORY: Hypertension, hypercholesterolemia, degenerative joint disease, history of anemia, left breast cancer x2. PAST SURGICAL HISTORY: Left shoulder surgery 21, left lumbar spinal fusion 14, breast lumpectomy 96 and 18 tonsillectomy. ALLERGIES: No known drug allergies. MEDICATIONS: Baclofen 10 mg daily, iron 150 mg daily, anastrozole 1 mg daily, morphine sulfate 15 mg b.i.d., meloxicam 15 mg daily, amlodipine 5 mg daily, lisinopril 10 mg daily. SOCIAL HISTORY: Previous smoker, 50 pack years, quit in 1995. She was drinking alcohol on a daily basis. FAMILY HISTORY: Father, cerebrovascular accident, myocardial infarction. Mother, breast cancer. VITAL SIGNS: Stable. Systolic blood pressure in the 100s, heart rate 90, pulse ox mid 90s on 2 liters nasal cannula. REVIEW OF SYSTEMS: This is an elderly female, who is slightly confused; however, does answer some questions appropriately. She states that she had a sudden onset of abdominal pain starting this morning. She reports that after her laparoscopic cholecystectomy. She had done well and did not have any issues. She states that she developed abdominal distention, crampy pain as well as nausea; however, no vomiting. No cough or sputum production. She did have two loose bowel movements. No red blood per rectum, no dark tarry stools. No fever, chills, no recent inadvertent weight loss. All other review of systems negative. PHYSICAL EXAMINATION: CHEST: Few scattered rales bilaterally. HEART: Regular, no murmurs. EXTREMITIES: No lower extremity edema, negative Homans sign. HEENT: No scleral icterus. NECK: No cervical lymphadenopathy. ABDOMEN: Distended, [id number] diffuse tenderness, voluntary guarding, no rebound. No hernias palpable. SKIN: Warm, dry. ASSESSMENT AND PLAN: A 76-year-old female with a partial small-bowel obstruction with a potential intraabdominal infection. We will repeat labs. A CT scan at her previous institution was not performed due to her dehydration and low GFR. If this does improve, we will proceed with a CT scan of the abdomen and pelvis to further delineate a possible etiology of her symptoms. She also does have a significant leukocytosis and we will empirically start her on Zosyn. If intraabdominal abscess is identified, we will then proceed with likely a diagnostic laparoscopy as well as suction irrigation of any fluid collection or abscess as well as intraperitoneal drain placement. Job ID: [id number] DocumentID: [id number] Dictated Date: 01/22/2022 20:12:33 Plaster Patternmaker Date: 01/22/2022 21:49:33 Dictated By: SHANNAN AUSTIN MD [facility]
[2022-01-22] MEDS ORDERED: NS IV 1000 ML 1,000 ML IV SCH (22:30)
[2022-01-22] MEDS ORDERED: VANCOMYCIN INJECTION 0.1 MG in NS (IVPB) 250 ML IV SCH (22:30)
--- NOTE | 2022-01-22 22:34 | Diagnostic Imaging Report ---
PROCEDURE: CT abdomen and pelvis without contrast. TECHNIQUE: Multiple contiguous axial images were obtained through the abdomen and pelvis without the use of intravenous contrast. Auto Exposure Controls were utilized during the CT exam to meet ALARA standards for radiation dose reduction. INDICATION: Sepsis. Abdominal distention. Concern for bowel obstruction. COMPARISON: None. FINDINGS: The heart is unremarkable. Patchy and consolidative opacities are seen in the bilateral lung bases. Large hiatal hernia is present. There is a micronodular contour of the liver. No focal hepatic lesions are seen. The gallbladder is surgically absent. A large volume of ascites is seen in the abdomen and pelvis. The spleen, pancreas, adrenal glands and kidneys have a normal appearance. There is no pathologically enlarged mesenteric or retroperitoneal adenopathy. The bowel loops are nondilated. The appendix is visualized in the right lower quadrant has a normal appearance. There is no free air. No acute osseous abnormalities. Posterior fusion changes are visualized in the lower lumbar spine. There is left convexity curvature of the lumbar spine. There is calcified aortic and iliac atherosclerotic plaque without aneurysm. The urinary bladder is decompressed with a Dorantes in place. IMPRESSION: 1. Large volume of ascites in the abdomen and pelvis. 2. Cirrhotic morphology of the liver. No focal hepatic lesions. Consider liver protocol CT on an outpatient basis to screen for hepatocellular carcinoma. 3. Patchy and consolidative opacities in the bilateral lung bases. Findings can be seen with atelectasis and/or infection. 4. Large hiatal hernia. Dictated by: Dictated on workstation # [id number]
[2022-01-22] MEDS ORDERED: NS IV 1000 ML 1,000 ML ONE (22:38)
[2022-01-22] MEDS: fentaNYL INJ 100 MCG/2 ML AMP IVP PRN (22:40)
[2022-01-22] MEDS: PIPERACILLIN SODIUM/TAZOBACTAM 4.5 GM in NS (IVPB) 100 ML IV SCH (22:40)
[2022-01-22] MEDS ORDERED: VANCOMYCIN 1 GM/NS 250 ML IVPB IV ONE ×2 (23:15)
[2022-01-23] MEDS ORDERED: NS IV 1000 ML 1,000 ML ONE (00:35)
[2022-01-23 02:35] LABS: BASOPHILS # (AUTO) 0.1 10^3/uL (0.0-0.1); BASOPHILS % (AUTO) 0 % (0-10); EOSINOPHILS % (AUTO) 0 % (0-10); HEMATOCRIT 27 % (35-52); HEMOGLOBIN 8.2 g/dL (11.5-16.0); LYMPHOCYTES # (AUTO) 0.7 10^3/uL (1.0-4.0); LYMPHOCYTES % (AUTO) 3 % (12-44); MEAN CORPUSCULAR HEMOGLOBIN 24 pg (25-34); MEAN CORPUSCULAR HGB CONC 30 g/dL (32-36); MEAN CORPUSCULAR VOLUME 79 fL (80-99); MONOCYTES # (AUTO) 0.6 10^3/uL (0.0-1.0); MONOCYTES % (AUTO) 2 % (0-12); NEUTROPHILS # (AUTO) 21.1 10^3/uL (1.8-7.8); NEUTROPHILS % (AUTO) 93 % (42-75); PLATELET COUNT 632 10^3/uL (130-400); WHITE BLOOD COUNT 22.7 10^3/uL (4.3-11.0)
[2022-01-23 02:47] LABS: INR 1.3 (0.8-1.4); PROTHROMBIN TIME PATIENT 16.9 SEC (12.2-14.7)
[2022-01-23 02:48] LABS: ALBUMIN 2.1 GM/DL (3.2-4.5); POTASSIUM 5.4 MMOL/L (3.6-5.0)
[2022-01-23 02:49] LABS: CALCIUM 8.1 MG/DL (8.5-10.1)
[2022-01-23 02:50] LABS: TOTAL PROTEIN 5.6 GM/DL (6.4-8.2)
[2022-01-23 02:52] LABS: BILIRUBIN,TOTAL 2.6 MG/DL (0.1-1.0)
[2022-01-23 02:54] LABS: CREATININE SERUM 1.5 MG/DL (0.60-1.30); PHOSPHORUS 4.3 MG/DL (2.3-4.7)
[2022-01-23 02:57] LABS: MAGNESIUM 1.8 MG/DL (1.6-2.4)
[2022-01-23] MEDS: fentaNYL INJ 100 MCG/2 ML AMP IVP PRN ×4 (04:34→21:32)
[2022-01-23 05:47] LABS: ABG BASE EXCESS -3.8 MMOL/L (-2.5-2.5); ABG OXYGEN SATURATION 88 % (94-100); ABG PCO2 33 MMHG (35-45); ABG PO2 52 MMHG (79-93); ABG TCO2 21.3 MMOL/L (21.0-31.0); INSPIRED O2 6L; PATIENT TEMP 36.4; VENTILATOR NO
[2022-01-23 05:48] LABS: BASOPHILS % (AUTO) 0 % (0-10); EOSINOPHILS % (AUTO) 0 % (0-10); HEMATOCRIT 28 % (35-52); HEMOGLOBIN 8.4 g/dL (11.5-16.0); LYMPHOCYTES # (AUTO) 0.6 10^3/uL (1.0-4.0); LYMPHOCYTES % (AUTO) 3 % (12-44); MEAN CORPUSCULAR HEMOGLOBIN 23 pg (25-34); MEAN CORPUSCULAR HGB CONC 30 g/dL (32-36); MEAN CORPUSCULAR VOLUME 77 fL (80-99); MEAN PLATELET VOLUME 8.8 fL (9.0-12.2); MONOCYTES # (AUTO) 0.6 10^3/uL (0.0-1.0); MONOCYTES % (AUTO) 3 % (0-12); NEUTROPHILS # (AUTO) 21.6 10^3/uL (1.8-7.8); NEUTROPHILS % (AUTO) 93 % (42-75); PLATELET COUNT 665 10^3/uL (130-400); WHITE BLOOD COUNT 23.1 10^3/uL (4.3-11.0)
[2022-01-23 05:53] LABS: ALBUMIN 2.1 GM/DL (3.2-4.5); POTASSIUM 5.1 MMOL/L (3.6-5.0)
[2022-01-23 05:54] LABS: CALCIUM 8.2 MG/DL (8.5-10.1)
[2022-01-23 05:56] LABS: TOTAL PROTEIN 5.5 GM/DL (6.4-8.2)
[2022-01-23 05:57] LABS: BILIRUBIN,TOTAL 2.5 MG/DL (0.1-1.0)
[2022-01-23 05:59] LABS: CREATININE SERUM 1.56 MG/DL (0.60-1.30); PHOSPHORUS 4.3 MG/DL (2.3-4.7)
[2022-01-23 06:03] LABS: MAGNESIUM 1.9 MG/DL (1.6-2.4)
--- NOTE | 2022-01-23 06:27 | Consultation - Hospitalist ---
HPI History of Present Illness: HPI/Chief Complaint Chief complaint: Abdominal pain suspected SBO History present illness: This is a 76-year-old white female who transferred him from [facility] who Dr. AUSTIN has seen before for a prior cholecystectomy on 12/23/2021 who presented to the ICU with abdominal pain suspected SBO. CT scan was not done indicated but it was done here which showed ascites and no evidence of bowel obstruction. Patient appears very frail and pale end stage and appears older than stated age of 76. Paracentesis was performed and catheter still in place draining. 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 Paracentesis fluid sent for culture and cytology. Daughter at the bedside reports she was doing great and in nearly "perfect health" until the abrupt onset of these issues but she appears to be very declined and frail which does not match up with the report from the daughter. Apparently she has lost a lot of weight the last couple of months thinking it was her gallbladder but it appears she has cirrhosis and that would explain the significant decline in her status. Source: patient, family, RN/MD, old records Exam Limitations: clinical condition Date Seen 01/23/22 Attending Physician Enio Austin MD PCP SelfRaj MD Referring Physician Date of Admission Jan 22, 2022 at 19:13 Home Medications & Allergies Home Medications Reviewed patient Home Medication Reconciliation performed by pharmacy medication reconciliations paint technician and/or nursing. Patients Allergies have been reviewed. Allergies Allergies Coded Allergies No Known Drug Allergies (Unverified12/23/21) Past Qzxfbyu-[id number]-[id number] Hx Patient Social History Marrital Status: single Employed/Student: unemployed Tobacco Use?: No Smoking Status: Former Smoker Smokeless Tobacco Frequency: Never a User Use of E-Cig and/or Vaping dev: No Substance use?: No Alcohol Use?: Yes Alcohol type: Hard Liquor Alcohol Frequency: Once in a while Pt feels they are or have been: No Immunizations Up To Date Date of Influenza Vaccine: Jun 25, 2021 Tetanus Booster (TDap): More Than 5 Years Date of Pneumonia Vaccine: Jun 29, 2011 Seasonal Allergies Seasonal Allergies: Yes (OTC MEDICATION CONTROLLED) Current Status Advance Directives: Yes Advance Directive Location: Family to bring in copy Communicates: Verbally Primary Language: Turkish Preferred Spoken Language: Turkish Is interpretation needed?: No Sensory deficits: Vision impairment Implanted or Applied Medical D: Orthopedic hardware Past Medical History Surgeries: Orthopedic Gall Bladder Disease Arthritis, Back Injury Breast What Type of Treatment Did You: Radiation, Surgical Intervention Psoriasis Blood Disorders: No Review of Systems Constitutional: see HPI, dizziness, malaise, weakness EENTM: no symptoms reported Respiratory: no symptoms reported Cardiovascular: no symptoms reported Gastrointestinal: abdominal pain, nausea Musculoskeletal: back pain, joint pain Skin: no symptoms reported Psychiatric/Neurological: Anxiety, Depressed All Other Systems Reviewed Negative Unless Noted: Yes Physical Exam Physical Exam Vital Signs Vital Signs - First Documented 01/22/22 01/22/22 19:10 19:30 Temp 36.5 Pulse 100 Resp 22 B/P (MAP) 96/59 Pulse Ox 95 O2 Delivery Nasal Cannula O2 Flow Rate 4.00 Capillary Refill : Height, Weight, BMI Height: 5'" Weight: 185lbs. oz. 83.438728jd; 24.25 BMI Method: General Appearance: No Apparent Distress, WD/WN, Anxious, Chronically ill, Cac hetic, Thin, Other (Pale) Eyes: Bilateral Eye Normal Inspection, Bilateral Eye PERRL HEENT: PERRL/EOMI, Normal ENT Inspection, Pharynx Normal Neck: Full Range of Motion, Normal Inspection, Non Tender, Supple, Carotid Bruit Respiratory: Chest Non Tender, Lungs Clear, Normal Breath Sounds, No Accessory Muscle Use, No Respiratory Distress Cardiovascular: Regular Rate, Rhythm, No Edema, No Gallop, No JVD, No Murmur, Normal Peripheral Pulses Gastrointestinal: Normal Bowel Sounds, No Organomegaly, No Pulsatile Mass, Soft, Distended, Tenderness Back: Normal Inspection, No CVA Tenderness, No Vertebral Tenderness Extremity: Normal Capillary Refill, Normal Inspection, Normal Range of Motion, Non Tender, No Calf Tenderness, No Pedal Edema Neurologic/Psychiatric: Alert, Oriented x3, No Motor/Sensory Deficits, Normal Mood/Affect Skin: Normal Color, Warm/Dry Lymphatic: No Adenopathy Results Results/Procedures Labs Laboratory Tests 01/22/22 21:05 01/23/22 02:25 01/23/22 05:30 Patient resulted labs reviewed. Assessment/Plan Assessment and Plan Assess & Plan/Chief Complaint Assessment: Abdominal pain Presumed spontaneous bacterial peritonitis Ascites status post paracentesis removing 2500 cc Recent cholecystectomy on 12/23/2021 for hydrops Recent weight loss Former smoker History of breast cancer Cachexia Plan: Await cytology and culture Antibiotics for presumed spontaneous bacterial peritonitis Supportive care DNR Diagnosis/Problems Diagnosis/Problems (1) Spontaneous bacterial peritonitis (2) Cirrhosis (3) Sepsis (4) Hypotension WILBER ALEXANDER DO January 23, 2022 06:27
[2022-01-23] MEDS: PIPERACILLIN SODIUM/TAZOBACTAM 4.5 GM in NS (IVPB) 100 ML IV SCH ×3 (06:34→20:57)
--- NOTE | 2022-01-23 07:03 | Diagnostic Imaging Report ---
Indication: Central line placement. Comparison: None. Discussion: Single supine view of the abdomen and pelvis was obtained. There is a right femoral central line noted with tip projected over the right sacral ala. Postoperative changes are noted within the lumbar spine and sacrum. Nonobstructive bowel gas pattern. Impression: 1. Right femoral line projected in good position. Dictated by: Dictated on workstation # [id number]
[2022-01-23] MEDS ORDERED: methylPREDNISolone 125 MG (Solu-MEDROL) VIAL IVP ONE ×2 (08:15→10:45)
[2022-01-23] MEDS ORDERED: LIDOCAINE 1% INJ 20 ML VIAL ONE (09:07)
--- NOTE | 2022-01-23 09:47 | Diagnostic Imaging Report ---
INDICATION: Hypoxia and shortness of breath. Correlation made with the shoulder radiographs from November 20, 2018 FINDINGS: Lung volumes are diminished. There is no large effusion. No pneumothorax. Heart size appears appropriate without current evidence of edema or failure. There is severe arthritic changes present within the right shoulder. There has been prior left shoulder arthroplasty. Positioning of the components appear abnormal. The prosthesis appears dislocated but there are no current findings of fracture. IMPRESSION: 1. Low lung volumes without findings of pneumonia or edema. 2. Abnormal appearance the patient's left shoulder arthroplasty. Relationships appear abnormal suggesting a dislocation. Findings could be further assessed with a followup chest CT when the patient is clinically able. Dictated by: Dictated on workstation # [id number]
--- NOTE | 2022-01-23 10:13 | Progress Note ---
Subjective Date Seen by a Provider: January 23, 2022 Time Seen by a Provider: 09:00 Subjective/Events-last exam doing ok. worsening abd distention. no fever/chills. no nausea/vomiting. had 2 bm's yesterday. Focused Exam Lactate Level 01/22/22 21:05: Lactic Acid Level 0.95 01/23/22 02:25: Lactic Acid Level 1.13 Objective Exam Vital Signs Date Time Temp Pulse Resp B/P (MAP) Pulse Ox O2 Delivery O2 Flow Rate FiO2 01/23/22 09:00 108 27 93/75 93 Nasal Cannula 5.00 01/23/22 08:00 92 20 109/78 92 Nasal Cannula 5.00 01/23/22 07:57 36.7 01/23/22 07:00 96 23 123/77 95 Nasal Cannula 5.00 01/23/22 07:00 94 01/23/22 06:10 Nasal Cannula 5.00 01/23/22 06:00 93 18 105/74 93 Nasal Cannula 5.00 01/23/22 05:00 89 18 117/78 94 Nasal Cannula 5.00 01/23/22 04:00 36.4 01/23/22 04:00 96 18 115/84 95 Nasal Cannula 5.00 01/23/22 04:00 95 Nasal Cannula 6.00 01/23/22 03:00 86 15 83/57 98 Nasal Cannula 5.00 01/23/22 02:00 91 17 112/76 99 Nasal Cannula 5.00 01/23/22 01:00 91 01/23/22 01:00 89 19 144/71 96 Nasal Cannula 5.00 01/23/22 00:00 86 16 115/68 96 Nasal Cannula 5.00 01/23/22 00:00 36.5 01/23/22 00:00 95 Nasal Cannula 4.00 01/22/22 23:00 84 15 93/52 96 Nasal Cannula 5.00 01/22/22 22:15 93 15 87/54 96 Nasal Cannula 5.00 01/22/22 21:45 87 19 126/65 93 Nasal Cannula 5.00 01/22/22 20:15 86 14 124/69 95 Nasal Cannula 5.00 01/22/22 20:00 89 19 126/69 97 Nasal Cannula 5.00 01/22/22 19:45 90 16 91/54 92 Nasal Cannula 5.00 01/22/22 19:38 93 01/22/22 19:30 100 22 96/59 94 Nasal Cannula 5.00 01/22/22 19:10 36.5 01/22/22 19:10 95 Nasal Cannula 4.00 I & O 01/23/22 07:00 Intake Total 1450 ml Output Total 135 ml Balance 1315 ml Capillary Refill : General Appearance: No Apparent Distress HEENT: PERRL/EOMI Respiratory: Chest Non Tender, Normal Breath Sounds Cardiovascular: Regular Rate, Rhythm Gastrointestinal: soft, distended Extremity: Normal Capillary Refill Neurologic/Psychiatric: Alert, Oriented x3 Skin: Normal Color Lymphatic: No Adenopathy Results Lab Laboratory Tests 01/22/22 19:25: Urine Color ORANGE, Urine Clarity CLEAR, Urine pH 5.0, Urine Specific Campbell 1.015L, Urine Protein 2+H, Urine Glucose (UA) TRACEH, Urine Ketones 1+H, Urine Nitrite NEGATIVE, Urine Bilirubin 2+H, Urine Urobilinogen 1.0, Urine Leukocyte Esterase TRACEH, Urine RBC (Auto) 1+H, Urine RBC 2-5H, Urine WBC 10-25H, Urine Squamous Epithelial Cells 10-25H, Urine Renal Epithelial Cells NONE, Urine Crystals NONE, Urine Bacteria LARGEH, Urine Casts NONE, Urine Mucus NEGATIVE, Urine Culture Indicated YES 01/22/22 21:05: White Blood Count 24.5H, Red Blood Count 3.59L, Hemoglobin 8.3L, Hematocrit 27L, Mean Corpuscular Volume 76L, Mean Corpuscular Hemoglobin 23L, Mean Corpuscular Hemoglobin Concent 30L, Red Cell Distribution Width 20.7H, Platelet Count 635H, Mean Platelet Volume 9.1, Immature Granulocyte % (Auto) 1, Neutrophils (%) (Auto) 94H, Lymphocytes (%) (Auto) 2L, Monocytes (%) (Auto) 2, Eosinophils (%) (Auto) 1, Basophils (%) (Auto) 0, Neutrophils # (Auto) 22.9H, Lymphocytes # (Auto) 0.6L, Monocytes # (Auto) 0.5, Eosinophils # (Auto) 0.2, Basophils # (Auto) 0.1, Immature Granulocyte # (Auto) 0.2H, Neutrophils % (Manual) 94, Lymphocytes % (Manual) 2, Monocytes % (Manual) 4, Polychromasia MARKED, Target Cells SLIGHT, Blood Morphology Comment NA, Sodium Level 137, Potassium Level 5.5H, Chloride Level 104, Carbon Dioxide Level 18L, Anion Gap 15H, Blood Urea Nitrogen 38H, Creatinine 1.52H, Estimat Glomerular Filtration Rate 35, BUN/Creatinine Ratio 25, Glucose Level 103, Lactic Acid Level 0.95, Calcium Level 8.1L, Corrected Calcium 9.6, Magnesium Level 1.9, Total Bilirubin 2.6H, Aspartate Amino Transf (AST/SGOT) 19, Alanine Aminotransferase (ALT/SGPT) 10, Alkaline Phosphatase 746H, Total Protein 5.5L, Albumin 2.1L 01/23/22 02:25: White Blood Count 22.7H, Red Blood Count 3.45L, Hemoglobin 8.2L, Hematocrit 27L, Mean Corpuscular Volume 79L, Mean Corpuscular Hemoglobin 24L, Mean Corpuscular Hemoglobin Concent 30L, Red Cell Distribution Width 21.2H, Platelet Count 632H, Mean Platelet Volume 9.0, Immature Granulocyte % (Auto) 2, Neutrophils (%) (Auto) 93H, Lymphocytes (%) (Auto) 3L, Monocytes (%) (Auto) 2, Eosinophils (%) (Auto) 0, Basophils (%) (Auto) 0, Neutrophils # (Auto) 21.1H, Lymphocytes # (A uto) 0.7L, Monocytes # (Auto) 0.6, Eosinophils # (Auto) 0.0, Basophils # (Auto) 0.1, Immature Granulocyte # (Auto) 0.3H, Sodium Level 140, Potassium Level 5.4H, Chloride Level 107, Carbon Dioxide Level 17L, Anion Gap 16H, Blood Urea Nitrogen 39H, Creatinine 1.50H, Estimat Glomerular Filtration Rate 35, BUN/Creatinine Ratio 26, Glucose Level 93, Lactic Acid Level 1.13, Calcium Level 8.1L, Corrected Calcium 9.6, Magnesium Level 1.8, Total Bilirubin 2.6H, Aspartate Amino Transf (AST/SGOT) 13, Alanine Aminotransferase (ALT/SGPT) 8, Alkaline Phosphatase 720H, Total Protein 5.6L, Albumin 2.1L, Prothrombin Time 16.9H, INR Comment 1.3, Phosphorus Level 4.3 01/23/22 05:30: White Blood Count 23.1H, Red Blood Count 3.61L, Hemoglobin 8.4L, Hematocrit 28L, Mean Corpuscular Volume 77L, Mean Corpuscular Hemoglobin 23L, Mean Corpuscular Hemoglobin Concent 30L, Red Cell Distribution Width 20.3H, Platelet Count 665H, Mean Platelet Volume 8.8L, Immature Granulocyte % (Auto) 1, Neutrophils (%) (Auto) 93H, Lymphocytes (%) (Auto) 3L, Monocytes (%) (Auto) 3, Eosinophils (%) (Auto) 0, Basophils (%) (Auto) 0, Neutrophils # (Auto) 21.6H, Lymphocytes # (Auto) 0.6L, Monocytes # (Auto) 0.6, Eosinophils # (Auto) 0.0, Basophils # (Auto) 0.0, Immature Granulocyte # (Auto) 0.3H, Sodium Level 138, Potassium Level 5.1H, Chloride Level 106, Carbon Dioxide Level 17L, Anion Gap 15H, Blood Urea Nitrogen 39H, Creatinine 1.56H, Estimat Glomerular Filtration Rate 34, BUN/Creatinine Ratio 25, Glucose Level 94, Calcium Level 8.2L, Corrected Calcium 9.7, Magnesium Level 1.9, Total Bilirubin 2.5H, Aspartate Amino Transf (AST/SGOT) 12, Alanine Aminotransferase (ALT/SGPT) 8, Alkaline Phosphatase 697H, Total Protein 5.5L, Albumin 2.1L, Phosphorus Level 4.3, Blood Gas Puncture Site NOT INDICATED, Blood Gas Patient Temperature 36.4, Arterial Blood pH 7.40, Arterial Blood Partial Pressure CO2 33L, Arterial Blood Partial Pressure O2 52L, Arterial Blood HCO3 20L, Arterial Blood Total CO2 21.3, Arterial Blood Oxygen Saturation 88L, Arterial Blood Base Excess -3.8L, Jori Test NA, Blood Gas Ventilator Setting NO, Blood Gas Inspired Oxygen 6L 01/23/22 09:35: Assessment/Plan Assessment/Plan Assess & Plan/Chief Complaint ascites s/p laparoscopic cholecystectomy POD#31. IV abx. will proceed with paracentesis and send for c&s and labs. SHANNAN AUSTIN MD January 23, 2022 10:13
[2022-01-23 10:23] LABS: AMYLASE,BODY FLUID 3 U/L
[2022-01-23 10:26] LABS: TOTAL PROTEIN,BODY FLUID 1.9 G/DL
[2022-01-23 10:30] LABS: LDH,BODY FLUID 243 U/L
--- NOTE | 2022-01-23 10:42 | Tele-ICU Progress Note ---
Subjective Date Seen by a Provider: January 23, 2022 Time Seen by a Provider: 09:00 Subjective/Events-last exam This virtual visit was conducted using real time audio. Thank you for asking us to see this patient for respiratory insufficiency due to AE COPD. No formal COPD dx but heavy smoking history and has hyperinflated chest on CXR and in person. Recent events:Requiring 6 LPM O2. Paracentesis catheter 01/23/22 AM placed w a pprox 2500 ml output. PMH: Choly 12/23/2021, S/P breast CA, probable COPD. SH: smoking history: former. FH: Non-contributory ROS: as in HPI. PE: VSS. O2 sat 95% on 6 LPM NC. HEENT: No obvious masses, adenopathy or JVD. Chest: diminished with coarse crackles on auscultation. CV: RRR S1 S2 No murmur or added sounds. Abd: Distended, tender. Bowel sounds Y, high pitched. : Unremarkable. Dorantes Y. SUPERINTENDENT STATIONS/psychiatric: Grossly intact. No obvious focal findings. Extremities: No edema. Capillary refill < 3 seconds. Skin: unremarkable. Results: Elevated WCC 23.1, BUN 39, Creat 1.56. Decreased Hb 8.4, Alb 2.1. B.4/33/52 on 6 LPM.. Previous admission CXR: hyperinflated . Available chart/ vitals / labs / images reviewed. No video assessment done w malfunctioning teleICU camera, rest of exam as per RN. A/P: Respiratory insufficiency: Continue present management with O2. Monitor for increasing oxygenation needs and/or need for intubation. Ordered CXR. Added Duonebs, Medrol 125 mg IV 1 dose. Critical Care: critically ill patient. Cont. abx, PRN lortab. Discussed with MEMO Whitaker. Asked RN to reach out to eICU if any questions or concerns later. Time spent with patient/coordination of care with other health professionals (mins): 30 Sepsis Event Evaluation Height, Weight, BMI Height: 5'" Weight: 185lbs. oz. 83.555538og; 24.25 BMI Method: Focused Exam Lactate Level 01/22/22 21:05: Lactic Acid Level 0.95 01/23/22 02:25: Lactic Acid Level 1.13 Exam Exam Patient acknowledged, consented, and participated in this virtual visit which was conducted using real time audio/video Vital Signs Date Time Temp Pulse Resp B/P (MAP) Pulse Ox O2 Delivery O2 Flow Rate FiO2 01/23/22 10:00 90 24 106/62 96 Nasal Cannula 5.00 01/23/22 09:00 108 27 93/75 93 Nasal Cannula 5.00 01/23/22 08:00 92 20 109/78 92 Nasal Cannula 5.00 01/23/22 07:57 36.7 01/23/22 07:00 96 23 123/77 95 Nasal Cannula 5.00 01/23/22 07:00 94 01/23/22 06:10 Nasal Cannula 5.00 01/23/22 06:00 93 18 105/74 93 Nasal Cannula 5.00 01/23/22 05:00 89 18 117/78 94 Nasal Cannula 5.00 01/23/22 04:00 36.4 01/23/22 04:00 96 18 115/84 95 Nasal Cannula 5.00 01/23/22 04:00 95 Nasal Cannula 6.00 01/23/22 03:00 86 15 83/57 98 Nasal Cannula 5.00 01/23/22 02:00 91 17 112/76 99 Nasal Cannula 5.00 01/23/22 01:00 91 01/23/22 01:00 89 19 144/71 96 Nasal Cannula 5.00 01/23/22 00:00 86 16 115/68 96 Nasal Cannula 5.00 01/23/22 00:00 36.5 01/23/22 00:00 95 Nasal Cannula 4.00 01/22/22 23:00 84 15 93/52 96 Nasal Cannula 5.00 01/22/22 22:15 93 15 87/54 96 Nasal Cannula 5.00 01/22/22 21:45 87 19 126/65 93 Nasal Cannula 5.00 01/22/22 20:15 86 14 124/69 95 Nasal Cannula 5.00 01/22/22 20:00 89 19 126/69 97 Nasal Cannula 5.00 01/22/22 19:45 90 16 91/54 92 Nasal Cannula 5.00 01/22/22 19:38 93 01/22/22 19:30 100 22 96/59 94 Nasal Cannula 5.00 01/22/22 19:10 36.5 01/22/22 19:10 95 Nasal Cannula 4.00 I & O 01/23/22 07:00 Intake Total 1450 ml Output Total 135 ml Balance 1315 ml Height & Weight Height: 5'" Weight: 185lbs. oz. 83.446393er; 24.25 BMI Method: General Appearance: No Apparent Distress HEENT: PERRL/EOMI Respiratory: Chest Non Tender, Normal Breath Sounds Cardiovascular: Regular Rate, Rhythm Gastrointestinal: soft, distended Extremity: Normal Capillary Refill Neurologic/Psychiatric: Alert, Oriented x3 Skin: Normal Color Lymphatic: No Adenopathy Results Lab Laboratory Tests 01/22/22 21:05 01/23/22 02:25 01/23/22 05:30 Assessment/Plan Assessment/Plan See free text Critical Care: Critically Ill Patient DORY SCHROEDER MD January 23, 2022 10:42
[2022-01-23 10:54] LABS: GLUCOSE,BODY FLUID 89 MG/DL
[2022-01-23] MEDS: RT-ALBUTEROL/IPRATROPIUM 3 ML (DUONEB) VIAL INH SCH ×4 (10:58→22:33)
[2022-01-23 11:19] LABS: BODY FLUID APPEARENCE MOD CLDY; BODY FLUID COLOR YELLOW; BODY FLUID PH 7.5; BODY FLUID RBC COUNT 106 /uL; BODY FLUID SOURCE PERITON; BODY FLUID WBC TOTAL COUNT 10 /uL
[2022-01-23 11:29] LABS: BF OTHER CELLS 5 %; LYMPHOCYTES,BODY FLUID 62 %
[2022-01-23] MEDS ORDERED: ACETAMINOPHEN 325 MG TABLET PO PRN (12:45)
[2022-01-23] MEDS ORDERED: diphenhydrAMINE 25 MG TAB (BENADRYL) PO PRN (12:45)
[2022-01-23] MEDS ORDERED: DOCUSATE SODIUM 100 MG (COLACE) CAP PO PRN (12:45)
[2022-01-23] MEDS ORDERED: BISACODYL 10 MG SUPP (DULCOLAX) PR PRN (12:45)
[2022-01-23] MEDS ORDERED: LOPERAMIDE 2 MG (IMODIUM) TABLET PO PRN (12:45)
[2022-01-23] MEDS: ENOXAPARIN INJECTION 30 MG/0.3 ML SYR SC SCH (14:37)
--- NOTE | 2022-01-23 19:00 | OPERATIVE REPORT ---
DATE OF SERVICE: 01/23/2022 ATTENDING PRIMARY CARE PHYSICIAN: Dr. Raj Don. PREOPERATIVE DIAGNOSIS: Symptomatic ascites. POSTOPERATIVE DIAGNOSIS: Symptomatic ascites. PROCEDURE: Paracentesis. SURGEON: Shannan Austin MD ANESTHESIA: Local. ESTIMATED BLOOD LOSS: Minimal. FINDINGS: Red, yellow, turbid fluid likely indicating an infected seroma v. liquified hematoma. DISPOSITION: The patient tolerated the procedure well. INDICATIONS: The patient is a 76-year-old female who had symptomatic pain in the right upper abdominal quadrant as well as nausea and vomiting, was found to have a wedged gallstone in the cystic duct and on 12/23/2021, underwent a laparoscopic cholecystectomy, was found to have hydrops of the gallbladder. She did well after surgery and was sent home later that day. She was seen at [facility] for 1-day history of abdominal pain and distention. She did have a significantly elevated white count of 32.9 and anemic with a hemoglobin of 7.6. She was also severely profoundly dehydrated with elevated BUN and creatinine of [address] scan was performed, which did show a significant amount of ascites within the peritoneal cavity. DESCRIPTION OF PROCEDURE: The abdomen was prepped and draped in standard surgical fashion. A 1% lidocaine was then used to anesthetize the skin, subcutaneous tissue, muscle layers as well as the peritoneal lining. A vertical skin incision was made using 11 blade. The trocar and catheter were then introduced withdrawing of red-yellow turbid fluid. The catheter was then advanced over the trocar without any resistance and connected to tubing and a gravity drainage bag. Catheter was then cleaned and covered with gauze followed by Op-Site. The patient tolerated the procedure well. We will send the fluid off for culture and sensitivity as well as for laboratory evaluation and continue the drain to allow for decompression of her abdomen as well as continue drainage if there is an infectious etiology. Job ID: [id number] DocumentID: [id number] Dictated Date: 01/23/2022 10:25:21 Poultry Scalder Date: 01/23/2022 19:00:08 Dictated By: SHANNAN AUSTIN MD [facility]
[2022-01-23] MEDS: SENNA W/DOCUSATE (SENOKOT S) TABLET PO SCH (20:58)
[2022-01-24] MEDS: fentaNYL INJ 100 MCG/2 ML AMP IVP PRN ×4 (02:08→21:26)
[2022-01-24] MEDS: RT-ALBUTEROL/IPRATROPIUM 3 ML (DUONEB) VIAL INH SCH ×6 (02:48→21:46)
[2022-01-24] MEDS ORDERED: VANCOMYCIN 1 GM/NS 250 ML IVPB IV SCH ×2 (04:00)
[2022-01-24] MEDS: PIPERACILLIN SODIUM/TAZOBACTAM 4.5 GM in NS (IVPB) 100 ML IV SCH ×3 (06:14→23:02)
--- NOTE | 2022-01-24 06:17 | Progress Note - Hospitalist ---
Subjective HPI/CC On Admission Date Seen by Provider: January 24, 2022 Time Seen by Provider: 10:30 Chief complaint: Abdominal pain suspected SBO History present illness: This is a 76-year-old white female who transferred him from [facility] who Dr. AUSTIN has seen before for a prior cholecystectomy on 12/23/2021 who presented to the ICU with abdominal pain suspected SBO. CT scan was not done indicated but it was done here which showed ascites and no evidence of bowel obstruction. Patient appears very frail and pale end stage and appears older than stated age of 76. Paracentesis was performed and catheter still in place draining. 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 Paracentesis fluid sent for culture and cytology. Daughter at the bedside reports she was doing great and in nearly "perfect health" until the abrupt onset of these issues but she appears to be very declined and frail which does not match up with the report from the daughter. Apparently she has lost a lot of weight the last couple of months thinking it was her gallbladder but it appears she has cirrhosis and that would explain the significant decline in her status. Subjective/Events-last exam Patient doing about the same Pain is improved Paracentesis fluid noted to be no growth to date Broad-spectrum antibiotics maintained Supportive care to continue PT and OT will be ordered Review of Systems General: Fatigue, Malaise Focused Exam Lactate Level 01/22/22 21:05: Lactic Acid Level 0.95 01/23/22 02:25: Lactic Acid Level 1.13 Objective Exam Vital Signs Vital Signs Date Time Temp Pulse Resp B/P (MAP) Pulse Ox O2 Delivery O2 Flow Rate FiO2 01/24/22 10:27 100 Nasal Cannula 5.00 01/24/22 07:49 36.7 79 18 95/71 Capillary Refill : General Appearance: No Apparent Distress, WD/WN, Chronically ill, Cachetic, Thin Respiratory: Lungs Clear Cardiovascular: Regular Rate, Rhythm Neurologic/Psychiatric: Alert, Oriented x3 Results/Procedures Lab Patient resulted labs reviewed. Assessment/Plan Assessment and Plan Assess & Plan/Chief Complaint Assessment: Abdominal pain Presumed spontaneous bacterial peritonitis Ascites status post paracentesis removing 2500 cc Recent cholecystectomy on 12/23/2021 for hydrops Recent weight loss Former smoker History of breast cancer Cachexia Plan: Await cytology and culture Antibiotics for presumed spontaneous bacterial peritonitis Supportive care DNR 01/24/2022: Supportive care Grave prognosis Critical Care Critically Ill Patient Diagnosis/Problems Diagnosis/Problems (1) Spontaneous bacterial peritonitis (2) Cirrhosis (3) Sepsis (4) Hypotension WILBER ALEXANDER DO January 24, 2022 06:17
[2022-01-24] MEDS: SENNA W/DOCUSATE (SENOKOT S) TABLET PO SCH ×2 (09:16→21:18)
[2022-01-24] MEDS: ENOXAPARIN INJECTION 30 MG/0.3 ML SYR SC SCH (11:08)
[2022-01-24] MEDS: HYDROcodone/APAP 5 MG/325 MG (LORTAB) TAB PO PRN ×2 (11:08→19:50)
--- NOTE | 2022-01-24 12:05 | Occupational Therapy Eval ---
OT Evaluation-General/PLF Medical Diagnosis Admission Date Jan 22, 2022 at 19:13 Medical Diagnosis: possible bowel obstruction Onset Date: Jan 22, 2022 Therapy Diagnosis Therapy Diagnosis: decreased ADL Status Height/Weight Height (Feet): 5 Weight (Pounds): 185 Precautions Precautions/Isolations: Fall Prevention, Standard Precautions, Pressure Ulcer Referral Physician: Aaliyah Adame Reason: Evaluation/Treatment Medical History Additional Medical History HTN, hypercholesterolemia, degenerative joint disease, anemia, L breast cancer x2, L shoulder surgery, L spinal fusion Current History transfer to [facility] for surgical consult due to abdominal pain and distension. 01/23/22 s/p paracentesis Social History Home: Multilevel Current Living Status: Children (daughter) Entry Into Home: Stairs With Railing Steps Into Home: 4 ADL-Prior Level of Function SCALE: Activities may be completed with or without assistive devices. 3-Pdyegsayrl-ekyzcmk completes the activity by him/herself with no assistance from a helper. 5-Set-up or Clean-up Assistance-helper sets up or cleans up; patient completes activity. [place] assists only prior to or following the activity. 4-Supervision or Touching Assistance-helper provides verbal cues and/or touching/steadying and/or contact guard assistance as patient completes activity. Assistance may be provided throughout the activity or intermittently. 3-Partial/Moderate Assistance-helper does LESS THAN HALF the effort. [place] lifts, holds or supports trunk or limbs, but provides less than half the effort. 2-Substantial/Maximal Assistance-helper does MORE THAN HALF the effort. [place] lifts or holds trunk or limbs and provides more than half the effort. 3-Tepqoazzb-drkbut does ALL the effort. Patient does none of the effort to complete the activity. Or, the assistance of 2 or more helpers is required for the patient to complete the activity. If activity was not attempted, code reason: 7-Patient Refused. 9-Not Applicable-not attempted and the patient did not perform the activity before the current illness, exacerbation or injury. 10-Not Attempted due to Environmental Limitations-(lack of equipment, weather restraints, etc.). 88-Not Attempted due to Medical Conditions or Safety Concerns. ADL PLOF Comments Pt reports living with her daughter on the 2nd floor (main floor of [employer] style home). She has 3-4 steps into the house, with rail but had difficulty with completing at baseline.She has a w/c and walker, required assistance pushing w/c around and assistance with using walker. She is able to don shirt herself, but requires assistance with sponge baths, LB dressing, footwear, and toileting. In order to get into bathroom, pt's daughter would push pt into bathroom in w/c, then assist pt with transferring to toilet. She only completes sponge baths due to main level bathroom having bathtub without shower. Self Care: Needed Some Help Functional Cognition: Independent DME/Equipment: Tub OT Current Status Subjective Pt in bed, granddaughter present. Pt expresses need for caregiver assistance at home, as her daughter has been helping her but it is a burden on her daughter. OT notified pt's nurse of request for social work program coordinator to visit pt. Mental Status/Objective Patient Orientation: Person, Place, Situation Current Upper Extremity ROM LUE decreased, slight shoulder flexion (increased pain), WFL elbow/wrist/hand. PROM attempted but pt reports increased pain in shoulder. RUE WFL Upper Extremity Strength LUE grossly 2/5 RUE grossly 3/5 ADL-Treatment Eating (QC): 5 (per pt report. Assist to cut food and open containers) Oral Hygiene (QC): 5 (per pt/nursing report.) Other Treatments Pt in bed, family member present. Pt provided information about PLOF and home set up and participated in UE screen. Pt states she needs to have caregiver assistance at home, but unsure what her insurance will cover. OT informed pt's nurse of pt's concerns and request for social work program coordinator visit. OT attempted PROM L shoulder, but pt c/o pain with minimal movement, so PROM terminated. Pt has no c/o pain with elbow, wrist, finger/hand movements on L side. Pt declined OOB activities at this time, requesting to rest. Per PT report, pt required max A supine to/from sit transfer, bed to/from chair transfer and with ambulation using FWW. OT educated pt on OT POC while she is admitted to hospital, including increasing safety and independence with ADLs and functional mobility, as well as increasing BUE strength and activity tolerance, she verbalizes understanding. Post tx, pt in bed, call light in reach and all needs met. Education OT Patient Education: Correct positioning, Energy conservation, Modified ADL techniques, Progress toward Goal/Update tx plan, Purpose of tx/functional activities, Rehab process Teaching Recipient: Patient Teaching Methods: Discussion Response to Teaching: Verbalize Understanding OT Residential Goals Extractive Metallurgist Goals Time Frame: February 04, 2022 Eating (QC): 5 Oral Hygiene (QC): 5 Toileting Hygiene (QC): 3 Shower/Bathe Self (QC): 3 Upper Body Dressing (QC): 5 Lower Body Dressing (QC): 2 Additional Goals: 1-Demonstrate ADL Tasks, 2-Verbalize Understanding, 3- ImproveStrength/Sohail 1=Demonstrate adherence to instructed precautions during ADL tasks. 2=Patient will verbalize/demonstrate understanding of assistive devices/modifications for ADL. 3=Patient will improve strength/tolerance for activity to enable patient to perform ADL's. OT Education/Plan Problem List/Assessment Assessment: Decreased Activ Tolerance, Decreased UE Strength, Impaired Coordination, Impaired Funct Balance, Impaired I ADL's, Impaired Self-Care Skills, Restricted Funct UE ROM Discharge Recommendations Plan/Recommendations: Continue POC Therapy Discharge Recommendati: Other, See Comments Comment Pt would benefit from caregiver assistance within her house vs SNF Treatment Plan/Plan of Care Patient would benefit from OT for education, treatment and training to promote independence in ADL's, mobility, safety and/or upper extremity function for ADL's. Plan of Care: ADL Retraining, Functional Mobility, UE Funct Exercise/Act Treatment Duration: February 04, 2022 Frequency: 3 times per week (3-5 times per week) Rehab Potential: Guarded Time/GCodes Start Time: 11:25 Stop Time: 11:40 Total Time Billed (hr/min): 15 Billed Treatment Time 1NAMRATA ADDISON OT January 24, 2022 12:05
--- NOTE | 2022-01-24 13:51 | Physical Therapy Evaluation ---
PT Evaluation-General Medical Diagnosis Admission Date Jan 22, 2022 at 19:13 Medical Diagnosis: possible bowel obstruction Onset Date: Jan 22, 2022 Therapy Diagnosis Therapy Diagnosis: generalized weakness/debility Height/Weight Height (Feet): 5 Weight (Pounds): 185 Precautions Precautions/Isolations: Fall Prevention, Standard Precautions, Pressure Ulcer Referral Physician: Aaliyah Reason for Referral: Evaluation/Treatment Medical History Pertinent Medical History: HTN Additional Medical History breast cancer Current History transfer from [facility] secondary to abdominal distention Reviewed History: Yes Social History Home: [facility] Current Living Status: Children (daughter) Entry Into Home: Stairs With Railing PT Steps Into Home: 4 Prior Prior Level of Function SCALE: Activities may be completed with or without assistive devices. 1-Rfunajtekg-knpfetj completes the activity by him/herself with no assistance from a helper. 5-Set-up or Clean-up Assistance-helper sets up or cleans up; patient completes activity. [place] assists only prior to or following the activity. 4-Supervision or Touching Assistance-helper provides verbal cues and/or touching/steadying and/or contact guard assistance as patient completes activity. Assistance may be provided throughout the activity or intermittently. 3-Partial/Moderate Assistance-helper does LESS THAN HALF the effort. [place] lifts, holds or supports trunk or limbs, but provides less than half the effort. 2-Substantial/Maximal Assistance-helper does MORE THAN HALF the effort. [place] lifts or holds trunk or limbs and provides more than half the effort. 8-Exqobvkpl-ajueov does ALL the effort. Patient does none of the effort to complete the activity. Or, the assistance of 2 or more helpers is required for the patient to complete the activity. If activity was not attempted, code reason: 7-Patient Refused. 9-Not Applicable-not attempted and the patient did not perform the activity before the current illness, exacerbation or injury. 10-Not Attempted due to Environmental Limitations-(lack of equipment, weather restraints, etc.). 88-Not Attempted due to Medical Conditions or Safety Concerns. Bed Mobility: 3 Transfers (B,C,W/C): 3 Gait: 3 Indoor Mobility (Ambulation): Needed Some Help Prior Devices Use: Walker per patient, she hasn't "done much lately" PT Evaluation-Current Subjective Patient agrees to PT. Objective Patient Orientation: Normal For Age Attachments: Oxygen, Drains, Dorantes Catheter ROM/Strength ROM Lower Extremities bilateral LE WFL Strength Lower Extremities 3-/5 grossly bilateral LE Integumentary/Posture Integumentary refer to nursing notes Bladder Incontinence: Dorantes Cath Posture kyphotic Neuromuscular (Tone, Coordination, Reflexes) grossly intact Sensory Vision: Functional Hearing: Functional Transfers Lying to Sitting/Side of Bed(Q: 2 Sit to Stand (QC): 2 Chair/Dqh-qz-Fjpef Xfer(QC): 2 Gait Does the Patient Walk?: Yes Mode of Locomotion: Both Anticipated Mode of Locomotion: Both Walk 10 feet (QC): 2 Walk 50 ft with 2 Turns(QC): 88 Walk 150 ft (QC): 88 Gait Assistive Device: FWW Comments/Gait Description shuffle gait sequence Balance Sitting Static: Fair Sitting Dynamic: Fair Standing Static: Poor Standing Dynamic: Poor Assessment/Needs 76 y.o. female, will benefit from skilled PT to address functional strength and mobility to improve current LOF to safely return to home with family at maximum LOF. Rehab Potential: Guarded PT Half-Way Goals Half-Way Goals PT Data Programmer Goals Time Frame: February 05, 2022 Roll Left & Right (QC): 3 Sit to Lying (QC): 3 Lying-Sitting on Side/Bed(QC): 3 Sit to Stand (QC): 3 Chair/Yde-qi-Xjrxa Xfer(QC): 3 Toilet Transfer (QC): 3 Walk 10 feet (QC): 3 Walk 50ft with 2 Turns (QC): 3 PT Plan Problem List Problem List: Activity Tolerance, Functional Strength, Safety, Balance, Gait, Transfer, Bed Mobility Treatment/Plan Treatment Plan: Continue Plan of Care Treatment Plan: Bed Mobility, Education, Functional Activity Sohail, Functional Strength, Gait, Safety, Therapeutic Exercise, Transfers Treatment Duration: February 05, 2022 Frequency: 6 times per week Estimated Hrs Per Day: .25 hour per day Time/GCodes Time In: 1325 Time Out: 1336 Total Billed Treatment Time: 11 Total Billed Treatment 1 visit EVMod 11 min ANGELICA RESENDIZ PT January 24, 2022 13:51
[2022-01-24 14:39] LABS: BASOPHILS % (AUTO) 0 % (0-10); EOSINOPHILS % (AUTO) 0 % (0-10); HEMATOCRIT 26 % (35-52); HEMOGLOBIN 7.8 g/dL (11.5-16.0); LYMPHOCYTES # (AUTO) 0.6 X 10^3 (1.0-4.0); LYMPHOCYTES % (AUTO) 3 % (12-44); MEAN CORPUSCULAR HEMOGLOBIN 23 pg (25-34); MEAN CORPUSCULAR HGB CONC 30 g/dL (32-36); MEAN CORPUSCULAR VOLUME 78 fL (80-99); MEAN PLATELET VOLUME 8.7 fL (9.0-12.2); MONOCYTES # (AUTO) 0.6 X 10^3 (0.0-1.0); MONOCYTES % (AUTO) 2 % (0-12); NEUTROPHILS # (AUTO) 22.3 X 10^3 (1.8-7.8); NEUTROPHILS % (AUTO) 94 % (42-75); PLATELET COUNT 747 10^3/uL (130-400); WHITE BLOOD COUNT 23.7 10^3/uL (4.3-11.0)
[2022-01-24] MEDS: ALPRAZolam 0.25 MG (XANAX) TAB PO PRN (14:51)
[2022-01-24 14:53] LABS: ALBUMIN 2.3 GM/DL (3.2-4.5); POTASSIUM 4.2 MMOL/L (3.6-5.0)
[2022-01-24 14:55] LABS: CALCIUM 8.5 MG/DL (8.5-10.1)
[2022-01-24 14:56] LABS: TOTAL PROTEIN 5.7 GM/DL (6.4-8.2)
[2022-01-24 14:59] LABS: PHOSPHORUS 3.4 MG/DL (2.3-4.7)
[2022-01-24 15:00] LABS: CREATININE SERUM 1.42 MG/DL (0.60-1.30)
[2022-01-24 15:02] LABS: MAGNESIUM 2.1 MG/DL (1.6-2.4)
[2022-01-24] MEDS ORDERED: NS IV 500 ML 500 ML ONE (15:56)
[2022-01-24] MEDS ORDERED: NS IV 500 ML 500 ML IV ONE (16:00)
[2022-01-24] MEDS: ONDANSETRON 4 MG (ZOFRAN) ORAL DISSOLVE TAB PO PRN (17:21)
[2022-01-24] MEDS: NS IV 1000 ML 1,000 ML IV SCH (17:22)
--- NOTE | 2022-01-24 18:41 | Progress Note ---
Subjective Date Seen by a Provider: January 24, 2022 Time Seen by a Provider: 17:10 Subjective/Events-last exam Patient seen with Dr. Klein. Patient reports doing ok, but having some nausea but no vomiting. Does reports some left side abdominal pain and RUQ pain. Denies any fever/chills. Reports tolerating diet and had small BM this AM. Focused Exam Lactate Level 01/22/22 21:05: Lactic Acid Level 0.95 01/23/22 02:25: Lactic Acid Level 1.13 Objective Exam Vital Signs Date Time Temp Pulse Resp B/P (MAP) Pulse Ox O2 Delivery O2 Flow Rate FiO2 01/24/22 15:58 36.5 82 18 89/58 100 Nasal Cannula 3.00 01/24/22 15:07 96 Nasal Cannula 4.00 01/24/22 11:57 37.2 88 18 90/59 98 Nasal Cannula 5.00 01/24/22 10:27 100 Nasal Cannula 5.00 01/24/22 09:26 95 Nasal Cannula 6.00 01/24/22 07:49 36.7 79 18 95/71 99 Nasal Cannula 5.00 01/24/22 07:26 97 Nasal Cannula 5.00 01/24/22 04:00 36.8 88 18 101/68 98 Nasal Cannula 5.00 01/24/22 02:48 98 Nasal Cannula 5.00 01/24/22 02:08 82 106/68 01/24/22 00:18 36.3 82 18 88/54 98 Nasal Cannula 6.00 01/23/22 22:35 98 Nasal Cannula 6.00 01/23/22 21:50 95 Nasal Cannula 6.00 01/23/22 19:11 96 Nasal Cannula 6.00 01/23/22 19:05 37.6 96 22 96/58 95 Nasal Cannula 6.00 I & O 01/24/22 07:00 Intake Total 1300 ml Output Total 3850 ml Balance -2550 ml Capillary Refill : General Appearance: No Apparent Distress, WD/WN Neck: Normal Inspection, Supple Respiratory: No Accessory Muscle Use, No Respiratory Distress Gastrointestinal: normal bowel sounds, soft, tenderness (LLQ, RUQ) Extremity: Normal Range of Motion, Non Tender Results Lab Laboratory Tests 01/24/22 00:06: Glucometer 163H 01/24/22 05:38: Glucometer 119H 01/24/22 14:31: White Blood Count 23.7H, Red Blood Count 3.37L, Hemoglobin 7.8L, Hematocrit 26L, Mean Corpuscular Volume 78L, Mean Corpuscular Hemoglobin 23L, Mean Corpuscular Hemoglobin Concent 30L, Red Cell Distribution Width 21.4H, Platelet Count 747H, Mean Platelet Volume 8.7L, Immature Granulocyte % (Auto) 1, Neutrophils (%) (Auto) 94H, Lymphocytes (%) (Auto) 3L, Monocytes (%) (Auto) 2, Eosinophils (%) (Auto) 0, Basophils (%) (Auto) 0, Neutrophils # (Auto) 22.3H, Lymphocytes # (Auto) 0.6L, Monocytes # (Auto) 0.6, Eosinophils # (Auto) 0.0, Basophils # (Auto) 0.0, Immature Granulocyte # (Auto) 0.2H, Sodium Level 139, Potassium Level 4.2, Chloride Level 106, Carbon Dioxide Level 19L, Anion Gap 14, Blood Urea Nitrogen 37H, Creatinine 1.42H, Estimat Glomerular Filtration Rate 38, BUN/Creatinine Ratio 26, Glucose Level 110H, Calcium Level 8.5, Corrected Calcium 9.9, Phosphorus Level 3.4, Magnesium Level 2.1, Total Bilirubin 2.0H, Aspartate Amino Transf (AST/SGOT) 8, Alanine Aminotransferase (ALT/SGPT) 8, Alkaline Phosphatase 592H, Total Protein 5.7L, Albumin 2.3L Microbiology 01/23/22 Blood Culture - Preliminary, Resulted No growth 01/23/22 Gram Stain - Final, Resulted 01/23/22 Body Fluid Culture - Preliminary, Resulted No growth 01/22/22 Urine Culture - Final, Complete NO GROWTH 01/22/22 MRSA Screen - Final, Complete MRSA not isolated Assessment/Plan Assessment/Plan Assess & Plan/Chief Complaint A 76 year old female with ascites s/p laparoscopic cholecystectomy POD#32. VSS WBC 23.7 - No growth on peritoneal fluid or blood cultures IV abx. Pain and nausea meds PRN ISABEL CANNON FINGER WAVER January 24, 2022 18:41
[2022-01-24] MEDS: ONDANSETRON 4 MG/2 ML (SDV) Z0FRAN IVP PRN (21:32)
--- NOTE | 2022-01-24 21:36 | Physician Query Clarification ---
Physician Query-General Query to Physician: The medical record reflects the following clinical scenario: The patient, in the setting of History/Risk factors, Presumed SBP/intra abdominal infection Clinical Findings Admission VS/Labs: HR 100, RR 22, BP 96/59, SpO2 94% sat on 5 L T 36.5, WBC 24.5,Lactic acid 0.95 Treatment LR 1L , Zosyn IV, Vanco IV, 1L NS Question: Do you agree with the impression of Sepsis, present on admission per Dr. Amanda Fischer? 1. Yes; will document Sepsis, present on admission in the Progress Notes 2. No; will continue current documentation in the Progress Notes 3. Other; will document explanation of clinical findings 4. Clinically undetermined; no explanation for clinical findings Please clarify and document your clinical opinion in the Progress Notes and Discharge Summary including the definitive and/or presumptive diagnosis, (suspected or probable), related to the above clinical findings. Please include clinical findings supporting your diagnosis. In responding to this query, please exercise your independent professional judgment. The purpose of this communication is to more accurately reflect the complexity of your patients condition. The fact that a question is asked does not imply that any particular answer is desired or expected. Please remember a lack of response to the above will prompt a phone page by CDI/coding staff Thank you for timely response to this clarification. Lachelle Gaona MSN, RN Clinical Raw Material Planner [phone] [email or web address] PHYSICIAN RESPONSE: Based on the clinical findings in the record, please respond to the query above on this document as an addendum. Physician Response: Physician Response patient was septic due to tachycardia, hypotension and leukocytosis. If you have questions please contact: Assistant To The Dean: Ext: Thank you for your time and cooperation. Clinical Raw Material Planner/Assistant To The Dean This is a permanent part of the medical record LACHELLE GAONA January 24, 2022 21:36 SHANNAN AUSTIN MD January 25, 2022 12:43
--- NOTE | 2022-01-24 21:37 | Physician Query Clarification ---
Physician Query-General Query to Physician: The medical record reflects the following clinical evidence: Clinical Indicators: Admission HGB 8,3, Documentation on admission by nursing of Stage 2 pressure ulcer to the sacral area, 2 cmx1 cm, Risk Factor(s): ongoing N/V with decrease nutritional intake, Weakness, Anemia, Treatment: Turn and reposition q 2 hours, frequent skin assessments, Allevyn in place 1. Pressure ulcer of sacral region, stage 2, present on admission 2. Other explanation of clinical findings 3. Unable to determine (no explanation for clinical findings) Please clarify and document your clinical opinion in the progress notes and discharge summary including the definitive and/or presumptive diagnosis, (bose spected or probable), related to the above clinical findings. Please include clinical findings supporting your diagnosis. Lachelle Jean MSN, RN Clinical Travel Journalist [phone] [email or web address] PHYSICIAN RESPONSE: Based on the clinical findings in the record, please respond to the query above on this document as an addendum. Physician Response: patient was septic upon admission due to tachycardia, hypotension and severe leukocytosis. Physician Response 1. If you have questions please contact: Glass Lined Tank Repairer: Ext: Thank you for your time and cooperation. Clinical Travel Journalist/Glass Lined Tank Repairer This is a permanent part of the medical record LACHELLE JEAN January 24, 2022 21:37 SHANNAN AUSTIN MD January 25, 2022 12:44
--- NOTE | 2022-01-24 21:53 | Physician Query Clarification ---
Physician Query-General Query to Physician: The medical record reflects the following clinical evidence: Clinical Indicators: RR 22 on admission then 16 to 27, 02 sats 92-97% on 5L on day of admission (P/F = [id number]), AMS with GCS of 13-14 Risk Factor(s): HF, Abdominal ascites, Extensive smoking Hx, No documentation of home 02 use prior to admission, likely SBP/abdominal abscess Treatment: Supplemental 02 up to 7L, Paracentesis with several liters removed off abdomen, Duo nebs, IV ABX, 1. Acute respiratory failure with hypoxia, present on admission 2. Other explanation of clinical findings 3. Unable to determine (no explanation for clinical findings) Please clarify and document your clinical opinion in the progress notes and discharge summary including the definitive and/or presumptive diagnosis, (suspected or probable), related to the above clinical findings. Please include clinical findings supporting your diagnosis. Lachelle Jean MSN, RN Clinical Supervisor [employer] [phone] [email or web address] PHYSICIAN RESPONSE: Based on the clinical findings in the record, please respond to the query above on this document as an addendum. Physician Response: Physician Response 1. If you have questions please contact: Sanitation Engineer: Ext: Thank you for your time and cooperation. Clinical Supervisor [employer]/Sanitation Engineer This is a permanent part of the medical record LACHELLE JEAN January 24, 2022 21:53 SHANNAN AUSTIN MD January 25, 2022 17:01
[2022-01-25] MEDS: HYDROcodone/APAP 5 MG/325 MG (LORTAB) TAB PO PRN (00:59)
[2022-01-25] MEDS: ONDANSETRON 4 MG/2 ML (SDV) Z0FRAN IVP PRN ×2 (02:24→21:37)
[2022-01-25] MEDS: RT-ALBUTEROL/IPRATROPIUM 3 ML (DUONEB) VIAL INH SCH ×6 (02:52→23:26)
[2022-01-25] MEDS: NS IV 1000 ML 1,000 ML IV SCH ×3 (04:51→21:37)
--- NOTE | 2022-01-25 05:22 | Progress Note - Hospitalist ---
Subjective HPI/CC On Admission Date Seen by Provider: January 25, 2022 Time Seen by Provider: 10:00 Chief complaint: Abdominal pain suspected SBO History present illness: This is a 76-year-old white female who transferred him from [facility] who Dr. AUSTIN has seen before for a prior cholecystectomy on 12/23/2021 who presented to the ICU with abdominal pain suspected SBO. CT scan was not done indicated but it was done here which showed ascites and no evidence of bowel obstruction. Patient appears very frail and pale end stage and appears older than stated age of 76. Paracentesis was performed and catheter still in place draining. 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 Paracentesis fluid sent for culture and cytology. Daughter at the bedside reports she was doing great and in nearly "perfect health" until the abrupt onset of these issues but she appears to be very declined and frail which does not match up with the report from the daughter. Apparently she has lost a lot of weight the last couple of months thinking it was her gallbladder but it appears she has cirrhosis and that would explain the significant decline in her status. Subjective/Events-last exam Pt is about the same White count down to 19,000 Vancomycin was discontinued due to MRSA negative swab Hospice was recommended and daughter will pursue that Updated social media job titles Review of Systems General: Fatigue, Malaise Gastrointestinal: Abdominal Pain Focused Exam Lactate Level Objective Exam Vital Signs Vital Signs Date Time Temp Pulse Resp B/P (MAP) Pulse Ox O2 Delivery O2 Flow Rate FiO2 01/25/22 23:55 36.0 85 14 108/58 (75) 96 Nasal Cannula 2.00 Capillary Refill : General Appearance: No Apparent Distress, WD/WN, Chronically ill, Cachetic, Thin Respiratory: Lungs Clear, Normal Breath Sounds Cardiovascular: Regular Rate, Rhythm Neurologic/Psychiatric: Alert, Oriented x3 Results/Procedures Lab Laboratory Tests 01/25/22 05:36 Patient resulted labs reviewed. Assessment/Plan Assessment and Plan Assess & Plan/Chief Complaint Assessment: Abdominal pain Presumed spontaneous bacterial peritonitis Ascites status post paracentesis removing 2500 cc Recent cholecystectomy on 12/23/2021 for hydrops Recent weight loss Former smoker History of breast cancer Cachexia Plan: Await cytology and culture Antibiotics for presumed spontaneous bacterial peritonitis Supportive care DNR 01/24/2022: Supportive care Grave prognosis 01/25/22: Hospice Critical Care Critically Ill Patient Diagnosis/Problems Diagnosis/Problems (1) Spontaneous bacterial peritonitis (2) Cirrhosis (3) Sepsis (4) Hypotension WILBER ALEXANDER DO January 25, 2022 05:22
[2022-01-25 06:01] LABS: ALBUMIN 1.9 GM/DL (3.2-4.5); BASOPHILS % (AUTO) 0 % (0-10); EOSINOPHILS # (AUTO) 0.2 10^3/uL (0.0-0.3); EOSINOPHILS % (AUTO) 1 % (0-10); HEMATOCRIT 23 % (35-52); LYMPHOCYTES # (AUTO) 0.6 10^3/uL (1.0-4.0); LYMPHOCYTES % (AUTO) 3 % (12-44); MEAN CORPUSCULAR HEMOGLOBIN 25 pg (25-34); MEAN CORPUSCULAR HGB CONC 30 g/dL (32-36); MEAN CORPUSCULAR VOLUME 81 fL (80-99); MEAN PLATELET VOLUME 8.9 fL (9.0-12.2); MONOCYTES # (AUTO) 0.5 10^3/uL (0.0-1.0); MONOCYTES % (AUTO) 3 % (0-12); NEUTROPHILS # (AUTO) 17.6 10^3/uL (1.8-7.8); NEUTROPHILS % (AUTO) 91 % (42-75); PLATELET COUNT 597 10^3/uL (130-400); POTASSIUM 3.5 MMOL/L (3.6-5.0); WHITE BLOOD COUNT 19.3 10^3/uL (4.3-11.0)
[2022-01-25 06:02] LABS: CALCIUM 7.9 MG/DL (8.5-10.1)
[2022-01-25 06:03] LABS: TOTAL PROTEIN 4.8 GM/DL (6.4-8.2)
[2022-01-25 06:05] LABS: BILIRUBIN,TOTAL 1.7 MG/DL (0.1-1.0)
[2022-01-25 06:07] LABS: CREATININE SERUM 1.12 MG/DL (0.60-1.30); PHOSPHORUS 3.2 MG/DL (2.3-4.7)
[2022-01-25 06:10] LABS: MAGNESIUM 1.9 MG/DL (1.6-2.4)
[2022-01-25] MEDS: PIPERACILLIN SODIUM/TAZOBACTAM 4.5 GM in NS (IVPB) 100 ML IV SCH ×3 (06:19→21:37)
[2022-01-25] MEDS: fentaNYL INJ 100 MCG/2 ML AMP IVP PRN ×6 (06:19→23:40)
[2022-01-25 08:21] VITALS: BP 98/63
[2022-01-25] MEDS: SENNA W/DOCUSATE (SENOKOT S) TABLET PO SCH ×2 (09:30→20:11)
--- NOTE | 2022-01-25 11:15 | Physical Therapy Progress Note ---
Therapy Progress Note Patient declined PT stating,"I'm done. I'm going on hospice." Family present. PT will attempt tomorrow one more time then dismiss patient from services. 1 ref ANGELICA RESENDIZ PT January 25, 2022 11:15
[2022-01-25 11:20] VITALS: BP 89/57
[2022-01-25] MEDS: ONDANSETRON 4 MG (ZOFRAN) ORAL DISSOLVE TAB PO PRN (11:20)
[2022-01-25] MEDS: ENOXAPARIN INJECTION 30 MG/0.3 ML SYR SC SCH (11:20)
[2022-01-25] MEDS: ALPRAZolam 0.25 MG (XANAX) TAB PO PRN (11:20)
--- NOTE | 2022-01-25 12:06 | Occ Therapy Progress Note ---
Therapy Progress Note Pt declined OT services on this date due to not feeling well. Family members present. OT educated pt on purpose/benefit of OT, but she pleasantly declined at this time. OT will attempt tx again tomorrow. 1, refusal [id number] THOMAS SWANSON OT January 25, 2022 12:05
[2022-01-25 15:43] VITALS: BP 69/37
[2022-01-25 16:05] VITALS: BP 90/64
--- NOTE | 2022-01-25 16:11 | Progress Note ---
Subjective Date Seen by a Provider: January 25, 2022 Time Seen by a Provider: 13:00 Subjective/Events-last exam patient made hospice care today. otherwise doing ok. no SOB. tolerating diet but low appetite. no fever/chills. continues to have copious peritoneal drainage. Focused Exam Lactate Level 01/22/22 21:05: Lactic Acid Level 0.95 01/23/22 02:25: Lactic Acid Level 1.13 Objective Exam Vital Signs Date Time Temp Pulse Resp B/P (MAP) Pulse Ox O2 Delivery O2 Flow Rate FiO2 01/25/22 16:05 90/64 (73) 01/25/22 15:43 36.1 79 18 69/37 (48) 97 Nasal Cannula 3.00 01/25/22 14:21 93 Nasal Cannula 2.00 01/25/22 11:20 37.1 77 18 89/57 (68) 98 Nasal Cannula 3.00 01/25/22 09:00 Nasal Cannula 2.00 01/25/22 08:21 36.9 72 18 98/63 (75) 96 Nasal Cannula 3.00 01/25/22 07:18 Nasal Cannula 2.00 01/25/22 07:11 99 Nasal Cannula 3.00 01/25/22 04:41 36.2 69 18 99/59 100 Nasal Cannula 3.00 01/25/22 00:24 36.2 79 18 89/53 97 Nasal Cannula 3.00 01/24/22 21:00 Nasal Cannula 4.00 01/24/22 20:43 36.6 78 17 91/56 99 Nasal Cannula 3.00 01/24/22 19:05 93 Nasal Cannula 3.00 I & O 01/25/22 07:00 Intake Total 2970 ml Output Total 5125 ml Balance -2155 ml Capillary Refill : General Appearance: No Apparent Distress HEENT: PERRL/EOMI Respiratory: Decreased Breath Sounds, Rhonci Cardiovascular: Regular Rate, Rhythm Gastrointestinal: normal bowel sounds, soft, tenderness Extremity: Normal Capillary Refill Neurologic/Psychiatric: Alert, Oriented x3 Skin: Normal Color Lymphatic: No Adenopathy Results Lab Laboratory Tests 01/25/22 00:01: Glucometer 123H 01/25/22 05:35: Glucometer 106 01/25/22 05:36: White Blood Count 19.3H, Red Blood Count 2.84L, Hemoglobin 7.0L, Hematocrit 23L, Mean Corpuscular Volume 81, Mean Corpuscular Hemoglobin 25, Mean Corpuscular Hemoglobin Concent 30L, Red Cell Distribution Width 23.3H, Platelet Count 597H, Mean Platelet Volume 8.9L, Immature Granulocyte % (Auto) 1, Neutrophils (%) (Auto) 91H, Lymphocytes (%) (Auto) 3L, Monocytes (%) (Auto) 3, Eosinophils (%) (Auto) 1, Basophils (%) (Auto) 0, Neutrophils # (Auto) 17.6H, Lymphocytes # (Auto) 0.6L, Monocytes # (Auto) 0.5, Eosinophils # (Auto) 0.2, Basophils # (Auto) 0.0, Immature Granulocyte # (Auto) 0.3H, Sodium Level 138, Potassium Level 3.5L, Chloride Level 108H, Carbon Dioxide Level 18L, Anion Gap 12, Blood Urea Nitrogen 30H, Creatinine 1.12, Estimat Glomerular Filtration Rate 50, BUN/Creatinine Ratio 27, Glucose Level 105, Calcium Level 7.9L, Corrected Calcium 9.6, Phosphorus Level 3.2, Magnesium Level 1.9, Total Bilirubin 1.7H, Aspartate Amino Transf (AST/SGOT) 8, Alanine Aminotransferase (ALT/SGPT) 8, Alkaline Phosphatase 466H, Total Protein 4.8L, Albumin 1.9L 01/25/22 11:05: Glucometer 107 Microbiology 01/23/22 Blood Culture - Preliminary, Resulted No growth 01/23/22 Gram Stain - Final, Resulted 01/23/22 Body Fluid Culture - Preliminary, Resulted No growth 01/22/22 Urine Culture - Final, Complete NO GROWTH 01/22/22 MRSA Screen - Final, Complete MRSA not isolated Assessment/Plan Assessment/Plan Assess & Plan/Chief Complaint ascites s/p laparoscopic cholecystectomy POD#34. IV abx. will proceed with paracentesis and send for c&s and labs. pt made hospice. cont abx and drainage for now. SHANNAN AUSTIN MD January 25, 2022 16:11
[2022-01-25 19:10] VITALS: BP 90/61
[2022-01-25 23:55] VITALS: BP 108/58
[2022-01-26] MEDS: ALPRAZolam 0.25 MG (XANAX) TAB PO PRN ×3 (01:37→21:34)
[2022-01-26] MEDS: MELATONIN 3 MG TABLET PO PRN ×2 (01:37→22:31)
[2022-01-26 04:00] VITALS: BP 115/57
[2022-01-26] MEDS: fentaNYL INJ 100 MCG/2 ML AMP IVP PRN ×6 (05:25→22:31)
[2022-01-26] MEDS: PIPERACILLIN SODIUM/TAZOBACTAM 4.5 GM in NS (IVPB) 100 ML IV SCH ×3 (05:26→21:34)
[2022-01-26 05:51] LABS: BASOPHILS % (AUTO) 0 % (0-10); EOSINOPHILS # (AUTO) 0.2 10^3/uL (0.0-0.3); EOSINOPHILS % (AUTO) 1 % (0-10); HEMATOCRIT 23 % (35-52); LYMPHOCYTES # (AUTO) 0.7 10^3/uL (1.0-4.0); LYMPHOCYTES % (AUTO) 5 % (12-44); MEAN CORPUSCULAR HEMOGLOBIN 24 pg (25-34); MEAN CORPUSCULAR HGB CONC 30 g/dL (32-36); MEAN CORPUSCULAR VOLUME 81 fL (80-99); MEAN PLATELET VOLUME 8.7 fL (9.0-12.2); MONOCYTES # (AUTO) 0.5 10^3/uL (0.0-1.0); MONOCYTES % (AUTO) 4 % (0-12); NEUTROPHILS # (AUTO) 11.7 10^3/uL (1.8-7.8); NEUTROPHILS % (AUTO) 87 % (42-75); PLATELET COUNT 505 10^3/uL (130-400); WHITE BLOOD COUNT 13.5 10^3/uL (4.3-11.0)
--- NOTE | 2022-01-26 05:53 | Progress Note - Hospitalist ---
Subjective HPI/CC On Admission Date Seen by Provider: January 26, 2022 Time Seen by Provider: 10:00 Chief complaint: Abdominal pain suspected SBO History present illness: This is a 76-year-old white female who transferred him from [facility] who Dr. AUSTIN has seen before for a prior cholecystectomy on 12/23/2021 who presented to the ICU with abdominal pain suspected SBO. CT scan was not done indicated but it was done here which showed ascites and no evidence of bowel obstruction. Patient appears very frail and pale end stage and appears older than stated age of 76. Paracentesis was performed and catheter still in place draining. 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 Paracentesis fluid sent for culture and cytology. Daughter at the bedside reports she was doing great and in nearly "perfect health" until the abrupt onset of these issues but she appears to be very declined and frail which does not match up with the report from the daughter. Apparently she has lost a lot of weight the last couple of months thinking it was her gallbladder but it appears she has cirrhosis and that would explain the significant decline in her status. Subjective/Events-last exam Pt is doing about the same Hospice is consulted Hemoglobin is 6.8 She will be going on hospice Potassium was 3.0 I am correcting that Brother from [place] has come to see her also Review of Systems General: Fatigue, Malaise Objective Exam Vital Signs Vital Signs Date Time Temp Pulse Resp B/P (MAP) Pulse Ox O2 Delivery O2 Flow Rate FiO2 01/27/22 04:04 36.9 83 18 106/67 (80) 95 Nasal Cannula 1.00 Capillary Refill : General Appearance: No Apparent Distress, WD/WN, Chronically ill Respiratory: Lungs Clear, Normal Breath Sounds Cardiovascular: Regular Rate, Rhythm Neurologic/Psychiatric: Alert, Oriented x3 Results/Procedures Lab Laboratory Tests 01/26/22 05:40 Patient resulted labs reviewed. Assessment/Plan Assessment and Plan Assess & Plan/Chief Complaint Assessment: Abdominal pain Presumed spontaneous bacterial peritonitis Ascites status post paracentesis removing 2500 cc Recent cholecystectomy on 12/23/2021 for hydrops Recent weight loss Former smoker History of breast cancer Cachexia Plan: Await cytology and culture Antibiotics for presumed spontaneous bacterial peritonitis Supportive care DNR 01/24/2022: Supportive care Grave prognosis 01/25/22: Hospice 01/26/22: Await final decision from family Poor prognosis Critical Care Critically Ill Patient Diagnosis/Problems Diagnosis/Problems (1) Spontaneous bacterial peritonitis (2) Cirrhosis (3) Sepsis (4) Hypotension WILBER ALEXANDER DO January 26, 2022 05:53
[2022-01-26 06:00] LABS: ALBUMIN 1.7 GM/DL (3.2-4.5); HEMOGLOBIN 6.8 g/dL (11.5-16.0)
[2022-01-26 06:01] LABS: CALCIUM 7.7 MG/DL (8.5-10.1)
[2022-01-26 06:03] LABS: TOTAL PROTEIN 4.4 GM/DL (6.4-8.2)
[2022-01-26 06:04] LABS: BILIRUBIN,TOTAL 1.4 MG/DL (0.1-1.0)
[2022-01-26 06:06] LABS: CREATININE SERUM 0.83 MG/DL (0.60-1.30); PHOSPHORUS 2.3 MG/DL (2.3-4.7)
[2022-01-26 06:09] LABS: MAGNESIUM 1.8 MG/DL (1.6-2.4)
[2022-01-26 06:46] LABS: ANISOCYTOSIS MODERATE; EOSINOPHILS % (MANUAL) 1 %; HYPOCHROMASIA MODERATE; LYMPHOCYTES % (MANUAL) 6 %; MONOCYTES % (MANUAL) 2 %; NEUTROPHILS % (MANUAL) 91 %; PLATELET CLUMPS OCCASIONAL; POLYCHROMASIA SLIGHT
[2022-01-26] MEDS: RT-ALBUTEROL/IPRATROPIUM 3 ML (DUONEB) VIAL INH SCH ×5 (07:17→22:03)
[2022-01-26 07:42] VITALS: BP 99/55
[2022-01-26] MEDS: SENNA W/DOCUSATE (SENOKOT S) TABLET PO SCH ×2 (09:03→21:34)
[2022-01-26] MEDS: NS IV 1000 ML 1,000 ML IV SCH ×2 (09:04→18:28)
--- NOTE | 2022-01-26 10:37 | Occ Therapy Progress Note ---
Therapy Progress Note Per nrsg...Pt is wanting to go on hospice and will have that discussion with family today. Nrsg also reported that pt is refusing all therapies, advised not to see pt at this time. HERON LAWTON January 26, 2022 10:37
--- NOTE | 2022-01-26 10:45 | Physical Therapy Progress Note ---
Therapy Progress Note Nursing reports patient is refusing all therapies today, will check back tomorrow. JANICE SOSA PT January 26, 2022 10:45
[2022-01-26] MEDS: ENOXAPARIN INJECTION 30 MG/0.3 ML SYR SC SCH (10:57)
[2022-01-26] MEDS ORDERED: KCL 20 MEQ TAB (K-DUR) PO NR (11:45)
[2022-01-26] MEDS ORDERED: MORP-68 PO (11:53)
[2022-01-26 11:59] VITALS: BP 93/59
--- NOTE | 2022-01-26 14:49 | Progress Note ---
Subjective Date Seen by a Provider: January 26, 2022 Time Seen by a Provider: 14:00 Subjective/Events-last exam pt status unchanged. still having significant peritoneal drain output. t olerating some diet but cannnot eat much. no fever/chills. Objective Exam Vital Signs Date Time Temp Pulse Resp B/P (MAP) Pulse Ox O2 Delivery O2 Flow Rate FiO2 01/26/22 11:59 36.9 80 18 93/59 (70) 97 Nasal Cannula 1.00 01/26/22 11:15 98 Nasal Cannula 1.00 01/26/22 09:00 Nasal Cannula 2.00 01/26/22 07:42 36.7 78 16 99/55 (70) 98 Nasal Cannula 1.50 01/26/22 07:17 98 Nasal Cannula 1.00 01/26/22 04:00 76 18 115/57 (76) 98 Nasal Cannula 2.00 01/25/22 23:55 36.0 85 14 108/58 (75) 96 Nasal Cannula 2.00 01/25/22 21:00 Nasal Cannula 2.00 01/25/22 19:10 35.7 85 18 90/61 (71) 98 Nasal Cannula 3.00 01/25/22 16:05 90/64 (73) 01/25/22 15:43 36.1 79 18 69/37 (48) 97 Nasal Cannula 3.00 I & O 01/26/22 07:00 Intake Total 1910 ml Output Total 4350 ml Balance -2440 ml Capillary Refill : General Appearance: No Apparent Distress HEENT: PERRL/EOMI Neck: Full Range of Motion Respiratory: Chest Non Tender, Decreased Breath Sounds Cardiovascular: Regular Rate, Rhythm Gastrointestinal: soft, tenderness Extremity: Normal Capillary Refill Neurologic/Psychiatric: Alert, Oriented x3 Skin: Normal Color Lymphatic: No Adenopathy Results Lab Laboratory Tests 01/25/22 18:21: Glucometer 108 01/26/22 00:15: Glucometer 100 01/26/22 05:40: White Blood Count 13.5H, Red Blood Count 2.83L, Hemoglobin 6.8*L, Hematocrit 23L , Mean Corpuscular Volume 81, Mean Corpuscular Hemoglobin 24L, Mean Corpuscular Hemoglobin Concent 30L, Red Cell Distribution Width 23.2H, Platelet Count 505H, Mean Platelet Volume 8.7L, Immature Granulocyte % (Auto) 3, Neutrophils (%) (Auto) 87H, Lymphocytes (%) (Auto) 5L, Monocytes (%) (Auto) 4, Eosinophils (%) (Auto) 1, Basophils (%) (Auto) 0, Neutrophils # (Auto) 11.7H, Lymphocytes # (Auto) 0.7L, Monocytes # (Auto) 0.5, Eosinophils # (Auto) 0.2, Basophils # (Auto) 0.0, Immature Granulocyte # (Auto) 0.4H, Neutrophils % (Manual) 91, Lymphocytes % (Manual) 6, Monocytes % (Manual) 2, Eosinophils % (Manual) 1, Clumped Platelets OCCASIONAL, Polychromasia SLIGHT, Hypochromasia MODERATE, Anisocytosis MODERATE, Sodium Level 138, Potassium Level 3.0L, Chloride Level 109H, Carbon Dioxide Level 19L, Anion Gap 10, Blood Urea Nitrogen 21H, Creat inine 0.83, Estimat Glomerular Filtration Rate 72, BUN/Creatinine Ratio 25, Glucose Level 83, Calcium Level 7.7L, Corrected Calcium 9.5, Phosphorus Level 2.3, Magnesium Level 1.8, Total Bilirubin 1.4H, Aspartate Amino Transf (AST/SGOT) 10, Alanine Aminotransferase (ALT/SGPT) 7, Alkaline Phosphatase 373H, Total Protein 4.4L, Albumin 1.7L 01/26/22 11:56: Glucometer 100 Microbiology 01/23/22 Blood Culture - Preliminary, Resulted No growth 01/23/22 Gram Stain - Final, Complete 01/23/22 Body Fluid Culture - Final, Complete No growth 01/22/22 Urine Culture - Final, Complete NO GROWTH 01/22/22 MRSA Screen - Final, Complete MRSA not isolated Assessment/Plan Assessment/Plan Assess & Plan/Chief Complaint ascites s/p laparoscopic cholecystectomy POD#34. IV abx. will proceed with paracentesis and send for c&s and labs. pt made hospice. cont abx and drainage for now. SHANNAN AUSTIN MD January 26, 2022 14:49
[2022-01-26 15:45] VITALS: BP 98/64
[2022-01-26 20:00] VITALS: BP 111/68
[2022-01-26] MEDS: NYSTATIN ORAL SUSP 5 ML UDC PO SCH (21:34)
[2022-01-26] MEDS: ONDANSETRON 4 MG/2 ML (SDV) Z0FRAN IVP PRN (21:34)
[2022-01-27] VITALS (8 sets, daily range): BP systolic 97–124; BP diastolic 60–84
[2022-01-27] MEDS: fentaNYL INJ 100 MCG/2 ML AMP IVP PRN ×5 (00:15→10:16)
[2022-01-27] MEDS: RT-ALBUTEROL/IPRATROPIUM 3 ML (DUONEB) VIAL INH SCH ×6 (02:14→22:08)
[2022-01-27] MEDS: NS IV 1000 ML 1,000 ML IV SCH (04:41)
[2022-01-27 05:56] LABS: BASOPHILS % (AUTO) 0 % (0-10); EOSINOPHILS # (AUTO) 0.2 10^3/uL (0.0-0.3); EOSINOPHILS % (AUTO) 1 % (0-10); HEMATOCRIT 23 % (35-52); LYMPHOCYTES # (AUTO) 0.7 10^3/uL (1.0-4.0); LYMPHOCYTES % (AUTO) 5 % (12-44); MEAN CORPUSCULAR HEMOGLOBIN 25 pg (25-34); MEAN CORPUSCULAR HGB CONC 29 g/dL (32-36); MEAN CORPUSCULAR VOLUME 85 fL (80-99); MEAN PLATELET VOLUME 8.9 fL (9.0-12.2); MONOCYTES # (AUTO) 0.6 10^3/uL (0.0-1.0); MONOCYTES % (AUTO) 4 % (0-12); NEUTROPHILS # (AUTO) 11.8 10^3/uL (1.8-7.8); NEUTROPHILS % (AUTO) 87 % (42-75); PLATELET COUNT 549 10^3/uL (130-400); WHITE BLOOD COUNT 13.5 10^3/uL (4.3-11.0)
[2022-01-27] MEDS: PIPERACILLIN SODIUM/TAZOBACTAM 4.5 GM in NS (IVPB) 100 ML IV SCH ×2 (05:56→14:08)
--- NOTE | 2022-01-27 05:59 | Progress Note - Hospitalist ---
Subjective HPI/CC On Admission Date Seen by Provider: January 27, 2022 Time Seen by Provider: 11:00 Chief complaint: Abdominal pain suspected SBO History present illness: This is a 76-year-old white female who transferred him from [facility] who Dr. AUSTIN has seen before for a prior cholecystectomy on 12/23/2021 who presented to the ICU with abdominal pain suspected SBO. CT scan was not done indicated but it was done here which showed ascites and no evidence of bowel obstruction. Patient appears very frail and pale end stage and appears older than stated age of 76. Paracentesis was performed and catheter still in place draining. 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 Paracentesis fluid sent for culture and cytology. Daughter at the bedside reports she was doing great and in nearly "perfect health" until the abrupt onset of these issues but she appears to be very declined and frail which does not match up with the report from the daughter. Apparently she has lost a lot of weight the last couple of months thinking it was her gallbladder but it appears she has cirrhosis and that would explain the significant decline in her status. Subjective/Events-last exam Pt is about the same Paracentesis catheter leaked last night disturbed her sleep Fentanyl patch will be given since all she is taking is Fentanyl IV and thinks Lortab makes her confused Transfusing one unit of blood due to hemoglobin of 6.7 Potassium will be replaced due to level of 3.0 Review of Systems General: Fatigue, Malaise Gastrointestinal: Abdominal Pain Objective Exam Vital Signs Vital Signs Date Time Temp Pulse Resp B/P (MAP) Pulse Ox O2 Delivery O2 Flow Rate FiO2 01/28/22 04:00 37.1 84 17 101/68 (79) 93 Room Air 01/28/22 02:25 0.00 Capillary Refill : General Appearance: No Apparent Distress, WD/WN, Chronically ill, Thin Respiratory: Lungs Clear, Normal Breath Sounds Cardiovascular: Regular Rate, Rhythm Neurologic/Psychiatric: Alert, Oriented x3 Results/Procedures Lab Patient resulted labs reviewed. Assessment/Plan Assessment and Plan Assess & Plan/Chief Complaint Assessment: Abdominal pain Presumed spontaneous bacterial peritonitis Ascites status post paracentesis removing 2500 cc Recent cholecystectomy on 12/23/2021 for hydrops Recent weight loss Former smoker History of breast cancer Cachexia Plan: Await cytology and culture Antibiotics for presumed spontaneous bacterial peritonitis Supportive care DNR 01/24/2022: Supportive care Grave prognosis 01/25/22: Hospice 01/26/22: Await final decision from family Poor prognosis 01/27/2022: Transfuse Potassium supplement Needs hospice Critical Care Critically Ill Patient Diagnosis/Problems Diagnosis/Problems (1) Spontaneous bacterial peritonitis (2) Cirrhosis (3) Sepsis (4) Hypotension WILBER ALEXANDER DO January 27, 2022 05:59
[2022-01-27 06:00] LABS: HEMOGLOBIN 6.7 g/dL (11.5-16.0)
[2022-01-27 06:01] LABS: ALBUMIN 1.7 GM/DL (3.2-4.5); POTASSIUM 3.1 MMOL/L (3.6-5.0)
[2022-01-27 06:02] LABS: CALCIUM 7.6 MG/DL (8.5-10.1)
[2022-01-27] MEDS: KCL 20 MEQ TAB (K-DUR) PO SCH (06:02)
[2022-01-27] MEDS: NYSTATIN ORAL SUSP 5 ML UDC PO SCH ×3 (06:02→21:11)
[2022-01-27 06:03] LABS: TOTAL PROTEIN 4.3 GM/DL (6.4-8.2)
[2022-01-27 06:05] LABS: BILIRUBIN,TOTAL 1.3 MG/DL (0.1-1.0)
[2022-01-27 06:07] LABS: CREATININE SERUM 0.74 MG/DL (0.60-1.30); PHOSPHORUS 1.9 MG/DL (2.3-4.7)
[2022-01-27 06:09] LABS: MAGNESIUM 1.8 MG/DL (1.6-2.4)
[2022-01-27] MEDS ORDERED: MAGNESIUM 1 GM/100 ML IVPB 100 ML IV ONE (07:00)
[2022-01-27] MEDS ORDERED: NS IV 500 ML 500 ML IV SCH (07:00)
[2022-01-27] MEDS: SENNA W/DOCUSATE (SENOKOT S) TABLET PO SCH ×2 (07:54→21:11)
[2022-01-27] MEDS: POTASSIUM CL 10MEQ/50ML IVPB 50 ML IV SCH ×4 (08:51→14:08)
--- NOTE | 2022-01-27 10:30 | Physical Therapy Progress Note ---
Therapy Progress Note Patient has declined PT after several attempts. Patient requests PT dismiss her from our services because she "wants to be left alone". SW notified. PT to dismiss patient from services at this time. 1 visit ANGELICA RESENDIZ PT January 27, 2022 10:30
[2022-01-27] MEDS: fentaNYL PATCH 12 MCG (DURAGESIC) TD SCH (11:48)
--- NOTE | 2022-01-27 12:53 | Occ Therapy Progress Note ---
Therapy Progress Note Per PT report. Patient requests therapies dismiss her from our services because she "wants to be left alone". PT notified SW. OT to dismiss patient from services at this time. HERON LAWTON January 27, 2022 12:53
[2022-01-27] MEDS: ONDANSETRON 4 MG/2 ML (SDV) Z0FRAN IVP PRN ×2 (14:08→17:51)
[2022-01-27] MEDS: ENOXAPARIN 40 MG/0.4 ML (LOVENOX) SYR SC SCH (14:08)
--- NOTE | 2022-01-27 15:02 | Progress Note ---
Subjective Date Seen by a Provider: January 27, 2022 Time Seen by a Provider: 14:30 Subjective/Events-last exam Patient seen with Dr. Klein. Patient reports doing ok but having nausea and an episode of emesis, but no blood or coffee-ground emesis. Does report some heartburn currently. Having BMs. Objective Exam Vital Signs Date Time Temp Pulse Resp B/P (MAP) Pulse Ox O2 Delivery O2 Flow Rate FiO2 01/27/22 11:56 36.6 83 16 102/64 (77) 97 Nasal Cannula 1.00 01/27/22 10:45 98 Nasal Cannula 0.00 01/27/22 09:00 Nasal Cannula 2.00 01/27/22 07:31 36.8 67 16 111/68 (82) 98 Nasal Cannula 1.00 01/27/22 04:04 36.9 83 18 106/67 (80) 95 Nasal Cannula 1.00 01/27/22 02:15 97 Nasal Cannula 1.00 01/27/22 00:15 36.9 80 18 97/60 (72) 95 Nasal Cannula 1.00 01/26/22 22:03 96 Nasal Cannula 1.00 01/26/22 21:00 Nasal Cannula 2.00 01/26/22 20:00 37.0 78 18 111/68 (82) 97 Nasal Cannula 1.00 01/26/22 19:12 95 Nasal Cannula 1.00 01/26/22 15:45 36.9 86 18 98/64 (75) 95 Nasal Cannula 1.00 I & O 01/27/22 06:59 Intake Total 970 ml Output Total 725 ml Balance 245 ml Capillary Refill : General Appearance: No Apparent Distress, WD/WN Respiratory: No Accessory Muscle Use, No Respiratory Distress Gastrointestinal: normal bowel sounds, soft, tenderness (diffuse) Extremity: Normal Inspection, Normal Range of Motion Neurologic/Psychiatric: Alert, Oriented x3 Results Lab Laboratory Tests 01/26/22 17:22: Glucometer 96 01/26/22 23:59: Glucometer 96 01/27/22 05:24: White Blood Count 13.5H, Red Blood Count 2.73L, Hemoglobin 6.7*L, Hematocrit 23L , Mean Corpuscular Volume 85, Mean Corpuscular Hemoglobin 25, Mean Corpuscular Hemoglobin Concent 29L, Red Cell Distribution Width 24.4H, Platelet Count 549H, Mean Platelet Volume 8.9L, Immature Granulocyte % (Auto) 2, Neutrophils (%) (Auto) 87H, Lymphocytes (%) (Auto) 5L, Monocytes (%) (Auto) 4, Eosinophils (%) (Auto) 1, Basophils (%) (Auto) 0, Neutrophils # (Auto) 11.8H, Lymphocytes # (Auto) 0.7L, Monocytes # (Auto) 0.6, Eosinophils # (Auto) 0.2, Basophils # (Auto) 0.0, Immature Granulocyte # (Auto) 0.3H, Sodium Level 138, Potassium Level 3.1L, Chloride Level 110H, Carbon Dioxide Level 18L, Anion Gap 10, Blood Urea Nitrogen 14, Creatinine 0.74, Estimat Glomerular Filtration Rate 83, BU N/Creatinine Ratio 19, Glucose Level 78, Calcium Level 7.6L, Corrected Calcium 9.4, Phosphorus Level 1.9L, Magnesium Level 1.8, Total Bilirubin 1.3H, Aspartate Amino Transf (AST/SGOT) 10, Alanine Aminotransferase (ALT/SGPT) 7, Alkaline Phosphatase 389H, Total Protein 4.3L, Albumin 1.7L 01/27/22 05:32: Glucometer 77 01/27/22 07:44: Magnesium Level 1.8 01/27/22 11:52: Glucometer 105 Microbiology 01/23/22 Blood Culture - Preliminary, Resulted No growth 01/23/22 Gram Stain - Final, Complete 01/23/22 Body Fluid Culture - Final, Complete No growth 01/22/22 Urine Culture - Final, Complete NO GROWTH 01/22/22 MRSA Screen - Final, Complete MRSA not isolated Assessment/Plan Assessment/Plan Assess & Plan/Chief Complaint A 76 year old female with ascites s/p laparoscopic cholecystectomy POD#35. VSS WBC 13.5 Hgb 6.7 - 1 unit PRBCs ordered IV abx. Pain and nausea meds PRN pt made hospice. ISABEL CANNON CUTTER GRINDER OPERATOR January 27, 2022 15:02
[2022-01-28] VITALS (7 sets, daily range): BP systolic 91–111; BP diastolic 62–72
[2022-01-28] MEDS: CALCIUM CARBONATE 500 MG (TUMS) TAB.CHEW PO PRN ×2 (01:41→20:04)
[2022-01-28] MEDS: ONDANSETRON 4 MG (ZOFRAN) ORAL DISSOLVE TAB PO PRN (01:41)
[2022-01-28] MEDS: RT-ALBUTEROL/IPRATROPIUM 3 ML (DUONEB) VIAL INH SCH ×6 (02:24→22:14)
[2022-01-28] MEDS: NS IV 1000 ML 1,000 ML IV SCH ×4 (05:19→20:30)
[2022-01-28] MEDS: KCL 20 MEQ TAB (K-DUR) PO SCH (06:40)
[2022-01-28] MEDS: NYSTATIN ORAL SUSP 5 ML UDC PO SCH ×3 (06:42→21:57)
[2022-01-28 06:46] LABS: BASOPHILS # (AUTO) 0.1 10^3/uL (0.0-0.1); BASOPHILS % (AUTO) 0 % (0-10); EOSINOPHILS # (AUTO) 0.1 10^3/uL (0.0-0.3); EOSINOPHILS % (AUTO) 1 % (0-10); HEMATOCRIT 30 % (35-52); LYMPHOCYTES # (AUTO) 0.9 10^3/uL (1.0-4.0); LYMPHOCYTES % (AUTO) 4 % (12-44); MEAN CORPUSCULAR HEMOGLOBIN 25 pg (25-34); MEAN CORPUSCULAR HGB CONC 30 g/dL (32-36); MEAN CORPUSCULAR VOLUME 82 fL (80-99); MEAN PLATELET VOLUME 8.4 fL (9.0-12.2); MONOCYTES # (AUTO) 0.6 10^3/uL (0.0-1.0); MONOCYTES % (AUTO) 3 % (0-12); NEUTROPHILS # (AUTO) 19.4 10^3/uL (1.8-7.8); NEUTROPHILS % (AUTO) 89 % (42-75); PLATELET COUNT 660 10^3/uL (130-400); WHITE BLOOD COUNT 21.8 10^3/uL (4.3-11.0)
[2022-01-28 06:54] LABS: POTASSIUM 3.4 MMOL/L (3.6-5.0)
[2022-01-28 06:55] LABS: CALCIUM 7.8 MG/DL (8.5-10.1)
[2022-01-28 06:56] LABS: TOTAL PROTEIN 5.1 GM/DL (6.4-8.2)
[2022-01-28 06:58] LABS: BILIRUBIN,TOTAL 1.5 MG/DL (0.1-1.0)
[2022-01-28 07:00] LABS: CREATININE SERUM 0.69 MG/DL (0.60-1.30); PHOSPHORUS 1.8 MG/DL (2.3-4.7)
--- NOTE | 2022-01-28 07:03 | Progress Note - Hospitalist ---
Subjective HPI/CC On Admission Date Seen by Provider: January 28, 2022 Time Seen by Provider: 11:00 Chief complaint: Abdominal pain suspected SBO History present illness: This is a 76-year-old white female who transferred him from [facility] who Dr. AUSTIN has seen before for a prior cholecystectomy on 12/23/2021 who presented to the ICU with abdominal pain suspected SBO. CT scan was not done indicated but it was done here which showed ascites and no evidence of bowel obstruction. Patient appears very frail and pale end stage and appears older than stated age of 76. Paracentesis was performed and catheter still in place draining. 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 Paracentesis fluid sent for culture and cytology. Daughter at the bedside reports she was doing great and in nearly "perfect health" until the abrupt onset of these issues but she appears to be very declined and frail which does not match up with the report from the daughter. Apparently she has lost a lot of weight the last couple of months thinking it was her gallbladder but it appears she has cirrhosis and that would explain the significant decline in her status. Subjective/Events-last exam Pt is having reaccumulation of the ascitic fluid White count elevated at 21.[address] Austin will place a tunneled catheter for a continuous paracentesis on Monday Pt is a hospice candidate Review of Systems General: Fatigue, Malaise Gastrointestinal: Abdominal Pain Objective Exam Vital Signs Vital Signs Date Time Temp Pulse Resp B/P (MAP) Pulse Ox O2 Delivery O2 Flow Rate FiO2 01/29/22 03:43 36.0 88 18 118/65 (82) 96 Room Air 01/28/22 02:25 0.00 Capillary Refill : General Appearance: No Apparent Distress, WD/WN, Chronically ill Respiratory: Lungs Clear, Normal Breath Sounds Cardiovascular: Regular Rate, Rhythm Neurologic/Psychiatric: Alert, Depressed Affect Results/Procedures Lab Laboratory Tests 01/28/22 06:43 Patient resulted labs reviewed. Assessment/Plan Assessment and Plan Assess & Plan/Chief Complaint Assessment: Abdominal pain Presumed spontaneous bacterial peritonitis Ascites status post paracentesis removing 2500 cc Recent cholecystectomy on 12/23/2021 for hydrops Recent weight loss Former smoker History of breast cancer Cachexia Plan: Await cytology and culture Antibiotics for presumed spontaneous bacterial peritonitis Supportive care DNR 01/24/2022: Supportive care Grave prognosis 01/25/22: Hospice 01/26/22: Await final decision from family Poor prognosis 01/27/2022: Transfuse Potassium supplement Needs hospice 01/28/2022: Supportive care Hospice next week Critical Care Critically Ill Patient Diagnosis/Problems Diagnosis/Problems (1) Spontaneous bacterial peritonitis (2) Cirrhosis (3) Sepsis (4) Hypotension WILBER ALEXANDER DO January 28, 2022 07:03
[2022-01-28 07:26] LABS: BAND NEUTROPHILS 0 %; BASOPHILS % (MANUAL) 0 %; EOSINOPHILS % (MANUAL) 0 %; HYPOCHROMASIA SLIGHT; LYMPHOCYTES % (MANUAL) 3 %; MONOCYTES % (MANUAL) 0 %; NEUTROPHILS % (MANUAL) 97 %; POLYCHROMASIA MODERATE
[2022-01-28 07:27] LABS: ANISOCYTOSIS MARKED
[2022-01-28] MEDS: SENNA W/DOCUSATE (SENOKOT S) TABLET PO SCH ×2 (09:00→20:32)
--- NOTE | 2022-01-28 10:26 | Progress Note ---
Subjective Date Seen by a Provider: January 28, 2022 Time Seen by a Provider: 10:00 Subjective/Events-last exam doing ok. tolerating diet but decreased appetite and intermittent nausea. Objective Exam Vital Signs Date Time Temp Pulse Resp B/P (MAP) Pulse Ox O2 Delivery O2 Flow Rate FiO2 01/28/22 07:33 37.1 75 18 111/63 (79) 96 Room Air 01/28/22 07:23 91 Room Air 01/28/22 04:00 37.1 84 17 101/68 (79) 93 Room Air 01/28/22 02:25 94 Room Air 0.00 01/28/22 00:00 37.1 90 17 91/62 (72) 94 Room Air 01/27/22 22:10 37.7 87 16 124/84 94 Room Air 01/27/22 22:08 93 Room Air 01/27/22 19:40 Nasal Cannula 2.00 01/27/22 19:01 36.6 86 16 106/70 (82) 95 Room Air 01/27/22 18:49 92 Room Air 0.00 01/27/22 18:43 36.6 83 20 112/72 93 Room Air 01/27/22 15:25 36.8 81 16 109/68 (82) 96 Room Air 01/27/22 11:56 36.6 83 16 102/64 (77) 97 Nasal Cannula 1.00 01/27/22 10:45 98 Nasal Cannula 0.00 I & O 01/28/22 07:00 Intake Total 1680 ml Output Total 704 ml Balance 976 ml Capillary Refill : General Appearance: No Apparent Distress HEENT: PERRL/EOMI Neck: Full Range of Motion Respiratory: Chest Non Tender, Decreased Breath Sounds Cardiovascular: Regular Rate, Rhythm Gastrointestinal: normal bowel sounds, soft Extremity: Normal Capillary Refill Neurologic/Psychiatric: Alert, Oriented x3 Skin: Normal Color Lymphatic: No Adenopathy Results Lab Laboratory Tests 01/27/22 11:52: Glucometer 105 01/27/22 18:01: Glucometer 90 01/28/22 00:32: Glucometer 78 01/28/22 05:25: Glucometer 70 01/28/22 06:43: White Blood Count 21.8H, Red Blood Count 3.65L, Hemoglobin 9.0#L, Hematocrit 30L , Mean Corpuscular Volume 82, Mean Corpuscular Hemoglobin 25, Mean Corpuscular Hemoglobin Concent 30L, Red Cell Distribution Width 22.5H, Platelet Count 660H, Mean Platelet Volume 8.4L, Immature Granulocyte % (Auto) 3, Neutrophils (%) (Auto) 89H, Lymphocytes (%) (Auto) 4L, Monocytes (%) (Auto) 3, Eosinophils (%) (Auto) 1, Basophils (%) (Auto) 0, Neutrophils # (Auto) 19.4H, Lymphocytes # (Auto) 0.9L, Monocytes # (Auto) 0.6, Eosinophils # (Auto) 0.1, Basophils # (Auto) 0.1, Immature Granulocyte # (Auto) 0.7H, Neutrophils % (Manual) 97, Lymphocytes % (Manual) 3, Monocytes % (Manual) 0, Eosinophils % (Manual) 0, Basophils % (Manual) 0, Band Neutrophils 0, Polychromasia MODERATE, Hypochromasia SLIGHT, Anisocytosis MARKED, Sodium Level 138, Potassium Level 3.4L, Chloride Level 109H, Carbon Dioxide Level 17L, Anion Gap 12, Blood Urea Nitrogen 11, Creatinine 0.69, Estimat Glomerular Filtration Rate 89, BUN/Creatinine Ratio 16, Glucose Level 70, Calcium Level 7.8L, Corrected Calcium 9.4, Phosphorus Level 1.8L, Magnesium Level 2.0, Total Bilirubin 1.5H, Aspartate Amino Transf (AST/SGOT) 11, Alanine Aminotransferase (ALT/SGPT) 9, Alkaline Phosphatase 407H, Total Protein 5.1L, Albumin 2.0L Microbiology 01/23/22 Blood Culture - Preliminary, Resulted No growth 01/23/22 Gram Stain - Final, Complete 01/23/22 Body Fluid Culture - Final, Complete No growth 01/22/22 Urine Culture - Final, Complete NO GROWTH 01/22/22 MRSA Screen - Final, Complete MRSA not isolated Assessment/Plan Assessment/Plan Assess & Plan/Chief Complaint ascites s/p laparoscopic cholecystectomy POD#34. IV abx. will proceed with paracentesis and send for c&s and labs. pt made hospice. cont abx. 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 SHANNAN AUSTIN MD January 28, 2022 10:26
--- NOTE | 2022-01-28 10:28 | Discharge Inst-Surgical ---
D/C Lap Instructions-GEOVANNA Follow Up Appt in 2 weeks Activity as tolerated No driving for 24 hours No driving while on pain medications Incentive Spirometry use every 2 hours while awake Regular Diet Symptoms to Report: Fever over 101 degree F, Nausea/Vomiting Infection Signs and Symptoms to report: Increased redness, Foul odor of wound, Increased drainage Bathing instructions: May shower Operative Area Clean/Dry; Keep incision clean/dry If any problems/questions: Contact your physician or go to Emergency Room SHANNAN AUSTIN MD January 28, 2022 10:28
[2022-01-28] MEDS: ENOXAPARIN 40 MG/0.4 ML (LOVENOX) SYR SC SCH (13:39)
[2022-01-28] MEDS: fentaNYL INJ 100 MCG/2 ML AMP IVP PRN ×3 (14:36→21:56)
[2022-01-28] MEDS: ANTACID SUSP 30 ML UDC (MYLANTA) PO PRN (15:39)
[2022-01-28] MEDS: MELATONIN 3 MG TABLET PO PRN (20:04)
[2022-01-28] MEDS: PANTOPRAZOLE 40 MG (PROTONIX) VIAL IV SCH (20:04)
[2022-01-29] MEDS: NS IV 1000 ML 1,000 ML IV SCH (01:32)
[2022-01-29] MEDS: fentaNYL INJ 100 MCG/2 ML AMP IVP PRN ×8 (02:03→19:54)
[2022-01-29] MEDS: RT-ALBUTEROL/IPRATROPIUM 3 ML (DUONEB) VIAL INH SCH ×2 (02:15→06:57)
[2022-01-29 03:43] VITALS: BP 118/65
[2022-01-29] MEDS: NYSTATIN ORAL SUSP 5 ML UDC PO SCH (05:09)
[2022-01-29] MEDS: KCL 20 MEQ TAB (K-DUR) PO SCH (05:21)
[2022-01-29 06:03] LABS: BASOPHILS # (AUTO) 0.1 10^3/uL (0.0-0.1); MEAN CORPUSCULAR HEMOGLOBIN 25 pg (25-34)
[2022-01-29 06:05] LABS: BASOPHILS % (AUTO) 1 % (0-10); EOSINOPHILS # (AUTO) 0.4 10^3/uL (0.0-0.3); EOSINOPHILS % (AUTO) 3 % (0-10); HEMATOCRIT 26 % (35-52); HEMOGLOBIN 7.5 g/dL (11.5-16.0); LYMPHOCYTES # (AUTO) 0.9 10^3/uL (1.0-4.0); LYMPHOCYTES % (AUTO) 7 % (12-44); MEAN CORPUSCULAR HGB CONC 29 g/dL (32-36); MEAN CORPUSCULAR VOLUME 87 fL (80-99); MEAN PLATELET VOLUME 9.2 fL (9.0-12.2); MONOCYTES # (AUTO) 0.5 10^3/uL (0.0-1.0); MONOCYTES % (AUTO) 4 % (0-12); NEUTROPHILS # (AUTO) 10.8 10^3/uL (1.8-7.8); NEUTROPHILS % (AUTO) 81 % (42-75); PLATELET COUNT 480 10^3/uL (130-400); WHITE BLOOD COUNT 13.3 10^3/uL (4.3-11.0)
[2022-01-29 06:10] LABS: ALBUMIN 1.9 GM/DL (3.2-4.5); POTASSIUM 3.6 MMOL/L (3.6-5.0)
[2022-01-29 06:12] LABS: CALCIUM 7.6 MG/DL (8.5-10.1)
[2022-01-29 06:13] LABS: TOTAL PROTEIN 4.8 GM/DL (6.4-8.2)
[2022-01-29 06:15] LABS: BILIRUBIN,TOTAL 1.2 MG/DL (0.1-1.0)
[2022-01-29 06:17] LABS: CREATININE SERUM 0.64 MG/DL (0.60-1.30)
[2022-01-29 06:19] LABS: MAGNESIUM 1.9 MG/DL (1.6-2.4)
--- NOTE | 2022-01-29 06:36 | Progress Note - Hospitalist ---
Subjective HPI/CC On Admission Date Seen by Provider: January 29, 2022 Time Seen by Provider: 09:30 Chief complaint: Abdominal pain suspected SBO History present illness: This is a 76-year-old white female who transferred him from [facility] who Dr. AUSTIN has seen before for a prior cholecystectomy on 12/23/2021 who presented to the ICU with abdominal pain suspected SBO. CT scan was not done indicated but it was done here which showed ascites and no evidence of bowel obstruction. Patient appears very frail and pale end stage and appears older than stated age of 76. Paracentesis was performed and catheter still in place draining. 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 Paracentesis fluid sent for culture and cytology. Daughter at the bedside reports she was doing great and in nearly "perfect health" until the abrupt onset of these issues but she appears to be very declined and frail which does not match up with the report from the daughter. Apparently she has lost a lot of weight the last couple of months thinking it was her gallbladder but it appears she has cirrhosis and that would explain the significant decline in her status. Subjective/Events-last exam Patient doing well Patient reports pain is under control Further the bedside Comfort care protocol orders initiated Objective Exam Vital Signs Vital Signs Date Time Temp Pulse Resp B/P (MAP) Pulse Ox O2 Delivery O2 Flow Rate FiO2 01/29/22 08:40 Room Air 01/29/22 07:34 36.7 97 18 128/83 (98) 97 01/28/22 02:25 0.00 Capillary Refill : General Appearance: No Apparent Distress, WD/WN HEENT: PERRL/EOMI Respiratory: Lungs Clear Cardiovascular: Regular Rate, Rhythm Results/Procedures Lab Laboratory Tests 01/29/22 05:45 Patient resulted labs reviewed. Assessment/Plan Assessment and Plan Assess & Plan/Chief Complaint Assessment: Abdominal pain Presumed spontaneous bacterial peritonitis Ascites status post paracentesis removing 2500 cc Recent cholecystectomy on 12/23/2021 for hydrops Recent weight loss Former smoker History of breast cancer Cachexia Plan: Await cytology and culture Antibiotics for presumed spontaneous bacterial peritonitis Supportive care DNR 01/24/2022: Supportive care Grave prognosis 01/25/22: Hospice 01/26/22: Await final decision from family Poor prognosis 01/27/2022: Transfuse Potassium supplement Needs hospice 01/28/2022: Supportive care Hospice next week 01/29/2022: Comfort care protocol Critical Care Critically Ill Patient Diagnosis/Problems Diagnosis/Problems (1) Spontaneous bacterial peritonitis (2) Cirrhosis (3) Sepsis (4) Hypotension WILBER ALEXANDER DO January 29, 2022 06:36
[2022-01-29 07:34] VITALS: BP 128/83
[2022-01-29] MEDS: SENNA W/DOCUSATE (SENOKOT S) TABLET PO SCH ×2 (07:48→21:00)
[2022-01-29] MEDS: PANTOPRAZOLE 40 MG (PROTONIX) VIAL IV SCH (07:53)
[2022-01-29] MEDS: ANTACID SUSP 30 ML UDC (MYLANTA) PO PRN (08:34)
[2022-01-29] MEDS ORDERED: ARTIFICAL TEARS 0.4 ML UNIT DOSE (REFRESH PLUS) OU PRN (10:30)
[2022-01-29] MEDS ORDERED: PROMETHAZINE INJ 25 MG/ML (PHENERGAN) AMP IVP PRN (10:30)
[2022-01-29] MEDS ORDERED: LORazepam INJ 2 MG/ML (ATIVAN) VIAL IVP PRN (10:30)
[2022-01-29] MEDS ORDERED: SALIVA STIMULANT MOUTH SPRAY (BIOTENE) 1.5 OZ MM PRN (10:30)
[2022-01-29] MEDS ORDERED: ONDANSETRON 4 MG/2 ML (SDV) Z0FRAN IVP PRN (10:30)
[2022-01-29] MEDS ORDERED: GLYCOPYRROLATE 0.2 MG/ML (ROBINUL) 2 ML VIAL IV PRN (10:30)
[2022-01-29] MEDS ORDERED: RT-ALBUTEROL/IPRATROPIUM 3 ML (DUONEB) VIAL INH PRN (10:30)
[2022-01-29] MEDS ORDERED: ACETAMINOPHEN 650 MG SUPP (TYLENOL) PR PRN (10:30)
[2022-01-29] MEDS ORDERED: BISACODYL 10 MG SUPP (DULCOLAX) PR PRN (10:30)
--- NOTE | 2022-01-29 11:01 | Progress Note - Surgery ---
Subjective Time Seen by a Provider: 10:34 Subjective/Events-last exam Pt seen and examined, no new complaints. States she is still having some leaking from the abdomen. Review of Systems General: Fatigue Pulmonary: No Dyspnea, No Cough Cardiovascular: No: Chest Pain, Palpitations Gastrointestinal: Other (distention); No: Nausea, Vomiting Objective Exam Vital Signs Date Time Temp Pulse Resp B/P (MAP) Pulse Ox O2 Delivery O2 Flow Rate FiO2 01/29/22 08:40 Room Air 01/29/22 07:34 36.7 97 18 128/83 (98) 97 Room Air 01/29/22 06:57 96 Room Air 01/29/22 03:43 36.0 88 18 118/65 (82) 96 Room Air 01/29/22 02:15 95 Room Air 01/28/22 23:56 36.6 91 18 92/68 (76) 95 Room Air 01/28/22 22:14 95 Room Air 01/28/22 20:13 Room Air 01/28/22 19:53 38.0 95 19 109/72 (84) 93 Room Air 01/28/22 18:47 94 Room Air 01/28/22 15:52 37.3 93 18 110/69 (83) 95 Room Air 01/28/22 15:05 96 Room Air 01/28/22 11:59 37.2 76 18 109/68 (82) 95 Room Air 01/28/22 11:09 96 Room Air I & O 01/29/22 07:00 Intake Total 1720 ml Output Total 628 ml Balance 1092 ml Capillary Refill : General Appearance: No Apparent Distress, Chronically ill HEENT: PERRL/EOMI Respiratory: Lungs Clear, Normal Breath Sounds Cardiovascular: Regular Rate, Rhythm Gastrointestinal: normal bowel sounds, soft, other (distended, bandage covering previous paracentesis site) Neurologic/Psychiatric: Alert, Depressed Affect Results Lab Laboratory Tests 01/28/22 11:56: Glucometer 82 01/28/22 17:55: Glucometer 80 01/29/22 05:45: White Blood Count 13.3H, Red Blood Count 2.96L, Hemoglobin 7.5L, Hematocrit 26L, Mean Corpuscular Volume 87, Mean Corpuscular Hemoglobin 25, Mean Corpuscular Hemoglobin Concent 29L, Red Cell Distribution Width 23.8H, Platelet Count 480H, Mean Platelet Volume 9.2, Immature Granulocyte % (Auto) 5, Neutrophils (%) (Auto) 81H, Lymphocytes (%) (Auto) 7L, Monocytes (%) (Auto) 4, Eosinophils (%) (Auto) 3, Basophils (%) (Auto) 1, Neutrophils # (Auto) 10.8H, Lymphocytes # (Auto) 0.9L, Monocytes # (Auto) 0.5, Eosinophils # (Auto) 0.4H, Basophils # (Auto) 0.1, Immature Granulocyte # (Auto) 0.6H, Percent Immature Platelet Fraction 2.0, Sodium Level 138, Potassium Level 3.6, Chloride Level 112H, Carbon Dioxide Level 16L, Anion Gap 10, Blood Urea Nitrogen 9, Creatinine 0.64, Estimat Glomerular Filtration Rate 90, BUN/Creatinine Ratio 14, Glucose Level 65L, Calcium Level 7.6L, Corrected Calcium 9.3, Phosphorus Level 2.0L, Magnesium Level 1.9, Total Bilirubin 1.2H, Aspartate Amino Transf (AST/SGOT) 17, Alanine Aminotransferase (ALT/SGPT) 10, Alkaline Phosphatase 373H, Total Protein 4.8L, Albumin 1.9L Microbiology 01/23/22 Blood Culture - Final, Complete No growth 01/23/22 Gram Stain - Final, Complete 01/23/22 Body Fluid Culture - Final, Complete No growth 01/22/22 Urine Culture - Final, Complete NO GROWTH 01/22/22 MRSA Screen - Final, Complete MRSA not isolated Assessment/Plan Assessment/Plan Assessment/Plan Ascites Pt will need Pleur-X catheter placed, either Monday or Monday ALEKSANDR CALLE DO January 29, 2022 11:01
[2022-01-29] MEDS: ONDANSETRON 4 MG/2 ML (SDV) Z0FRAN IVP PRN (18:03)
[2022-01-30] MEDS: fentaNYL INJ 100 MCG/2 ML AMP IVP PRN ×2 (00:04→03:14)
[2022-01-30] MEDS: morphine INJ 4 MG/ML 1 ML (VIAL/SYRINGE) IV PRN ×5 (01:16→18:08)
[2022-01-30] MEDS: CALCIUM CARBONATE 500 MG (TUMS) TAB.CHEW PO PRN (03:13)
--- NOTE | 2022-01-30 06:58 | Progress Note - Hospitalist ---
Subjective HPI/CC On Admission Date Seen by Provider: January 30, 2022 Time Seen by Provider: 10:00 Chief complaint: Abdominal pain suspected SBO History present illness: This is a 76-year-old white female who transferred him from [facility] who Dr. AUSTIN has seen before for a prior cholecystectomy on 12/23/2021 who presented to the ICU with abdominal pain suspected SBO. CT scan was not done indicated but it was done here which showed ascites and no evidence of bowel obstruction. Patient appears very frail and pale end stage and appears older than stated age of 76. Paracentesis was performed and catheter still in place draining. 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 Paracentesis fluid sent for culture and cytology. Daughter at the bedside reports she was doing great and in nearly "perfect health" until the abrupt onset of these issues but she appears to be very declined and frail which does not match up with the report from the daughter. Apparently she has lost a lot of weight the last couple of months thinking it was her gallbladder but it appears she has cirrhosis and that would explain the significant decline in her status. Subjective/Events-last exam Patient has no new issues Pain is really controlled well Brother is at the bedside No concerns at this point Review of Systems Gastrointestinal: Abdominal Pain Objective Exam Vital Signs Vital Signs Date Time Temp Pulse Resp B/P (MAP) Pulse Ox O2 Delivery O2 Flow Rate FiO2 01/30/22 20:18 Room Air 01/30/22 08:30 0.00 01/29/22 07:34 36.7 97 18 128/83 (98) 97 Capillary Refill : General Appearance: No Apparent Distress, WD/WN, Chronically ill Respiratory: Lungs Clear, Normal Breath Sounds Cardiovascular: Regular Rate, Rhythm Neurologic/Psychiatric: Alert, Oriented x3 Results/Procedures Lab Patient resulted labs reviewed. Assessment/Plan Assessment and Plan Assess & Plan/Chief Complaint Assessment: Abdominal pain Presumed spontaneous bacterial peritonitis Ascites status post paracentesis removing 2500 cc Recent cholecystectomy on 12/23/2021 for hydrops Recent weight loss Former smoker History of breast cancer Cachexia Plan: Await cytology and culture Antibiotics for presumed spontaneous bacterial peritonitis Supportive care DNR 01/24/2022: Supportive care Grave prognosis 01/25/22: Hospice 01/26/22: Await final decision from family Poor prognosis 01/27/2022: Transfuse Potassium supplement Needs hospice 01/28/2022: Supportive care Hospice next week 01/29/2022: Comfort care protocol 01/30/2022: Paracentesis catheter tunneled type will be placed tomorrow Critical Care Critically Ill Patient Diagnosis/Problems Diagnosis/Problems (1) Spontaneous bacterial peritonitis (2) Cirrhosis (3) Sepsis (4) Hypotension WILBER ALEXANDER DO January 30, 2022 06:58
[2022-01-30] MEDS: SENNA W/DOCUSATE (SENOKOT S) TABLET PO SCH ×2 (09:27→20:58)
[2022-01-30] MEDS: HYDROcodone/APAP 5 MG/325 MG (LORTAB) TAB PO PRN ×3 (09:29→18:06)
[2022-01-30] MEDS: fentaNYL PATCH 12 MCG (DURAGESIC) TD SCH (11:03)
--- NOTE | 2022-01-30 14:08 | Progress Note - Surgery ---
Subjective Time Seen by a Provider: 12:34 Subjective/Events-last exam Pt seen and examined, states she is doing better today and "ate twice". Denies abd pain. Review of Systems HEENT: No Head Aches, No Visual Changes Pulmonary: No Dyspnea, No Cough Cardiovascular: No: Chest Pain, Palpitations Gastrointestinal: No: Nausea, Vomiting Objective Exam Vital Signs Date Time Temp Pulse Resp B/P (MAP) Pulse Ox O2 Delivery O2 Flow Rate FiO2 01/30/22 08:30 Room Air 0.00 01/30/22 03:03 Room Air 01/29/22 19:57 Room Air I & O 01/30/22 07:00 Intake Total 2800 ml Output Total 700 ml Balance 2100 ml Capillary Refill : General Appearance: No Apparent Distress, WD/WN HEENT: PERRL/EOMI Respiratory: Lungs Clear Cardiovascular: Regular Rate, Rhythm Gastrointestinal: normal bowel sounds, soft, other (distended, bandage covering previous paracentesis site) Neurologic/Psychiatric: Alert, Depressed Affect Results Lab Microbiology 01/23/22 Blood Culture - Final, Complete No growth 01/23/22 Gram Stain - Final, Complete 01/23/22 Body Fluid Culture - Final, Complete No growth 01/22/22 Urine Culture - Final, Complete NO GROWTH 01/22/22 MRSA Screen - Final, Complete MRSA not isolated Assessment/Plan Assessment/Plan Assessment/Plan Ascites Pt will need Pleur-X catheter placed, either Monday or Monday ALEKSANDR CALLE DO January 30, 2022 14:08
[2022-01-31] MEDS: morphine INJ 4 MG/ML 1 ML (VIAL/SYRINGE) IV PRN ×3 (04:04→10:57)
[2022-01-31] MEDS: HYDROcodone/APAP 5 MG/325 MG (LORTAB) TAB PO PRN ×3 (04:04→16:16)
[2022-01-31] MEDS: SENNA W/DOCUSATE (SENOKOT S) TABLET PO SCH ×2 (07:36→19:20)
--- NOTE | 2022-01-31 09:01 | Diagnostic Imaging Report ---
Indication: Ascites Ultrasound in all 4 quadrants demonstrates a large amount of ascites in all [address] Klein performed paracentesis, see his dictation for further details. Impression: Ultrasound images of the abdomen demonstrate large amount of ascites. Dictated by: Dictated on workstation # [id number]
--- NOTE | 2022-01-31 12:12 | Progress Note ---
Subjective Subjective/Events-last exam Patient having some pain this AM. States that the PO meds were helping yesterday but now she feels like she can't keep up with her pain. Tolerating PO diet. Patient and family wishes to proceed with SNF. Review of Systems General: Fatigue Pulmonary: No Dyspnea, No Cough Cardiovascular: Edema; No: Chest Pain, Palpitations Gastrointestinal: Abdominal Pain; No: Nausea, Vomiting Neurological: Weakness, Incoordination; No: Confusion Objective Exam Last Set of Vital Signs Vital Signs Date Time Temp Pulse Resp B/P (MAP) Pulse Ox O2 Delivery O2 Flow Rate FiO2 01/31/22 08:10 97 Room Air 01/30/22 08:30 0.00 01/29/22 07:34 36.7 97 18 128/83 (98) Capillary Refill : I&O Intake and Output 01/31/22 00:00 Intake Total 1500 ml Output Total 550 ml Balance 950 ml Intake Oral 1500 ml Output Urine Total 550 ml # Bowel Movements 1 General: Alert, Oriented X3, No Acute Distress Lungs: Clear to Auscultation, Normal Air Movement Heart: Regular Rate, No Murmurs Abdomen: Other (distended abdomen with fluid wave, diffuse ttp, normal bowel sounds) Neuro: Normal Speech Psych/Mental Status: Mental Status NL, Mood NL Results/Procedures Lab Microbiology 01/23/22 Blood Culture - Final, Complete No growth 01/23/22 Gram Stain - Final, Complete 01/23/22 Body Fluid Culture - Final, Complete No growth 01/22/22 Urine Culture - Final, Complete NO GROWTH 01/22/22 MRSA Screen - Final, Complete MRSA not isolated Assessment/Plan Assessment/Plan (1) Spontaneous bacterial peritonitis Status: Acute Assessment & Plan: 01/31: Continue to cover for infection, cultures thus far are negative (2) Ascites of liver Status: Acute Assessment & Plan: 01/31: Plan for pleur-ex drain placement tomorrow by Dr Klein (3) Cirrhosis Status: Chronic Qualifiers: Qualified Codes: K74.69 - Other cirrhosis of liver (4) Normocytic anemia Status: Acute Assessment & Plan: 01/31: Stable, no signs of acute bleeding, INR 1.3 (5) Severe protein-calorie malnutrition Status: Chronic (6) H/O malignant neoplasm of breast (7) Discharge planning issues Assessment & Plan: 01/31: Plan for SNF placement, PT ordered today, family reasonable and understand the advanced stage of disease and have considered hospice PILO CROUCH MD January 31, 2022 12:12
[2022-01-31] MEDS: ANTACID SUSP 30 ML UDC (MYLANTA) PO PRN (13:50)
--- NOTE | 2022-01-31 15:02 | Progress Note ---
Subjective Date Seen by a Provider: January 31, 2022 Time Seen by a Provider: 14:00 Subjective/Events-last exam doing ok. still very weak. able to tolerate liquids/ensure. recurrent ascites. no fever/chills. Objective Exam Vital Signs Date Time Temp Pulse Resp B/P (MAP) Pulse Ox O2 Delivery O2 Flow Rate FiO2 01/31/22 08:10 97 Room Air 01/30/22 20:18 Room Air I & O 01/31/22 07:00 Intake Total 1500 ml Output Total 475 ml Balance 1025 ml Capillary Refill : General Appearance: No Apparent Distress HEENT: PERRL/EOMI Neck: Full Range of Motion Respiratory: Chest Non Tender, Decreased Breath Sounds Cardiovascular: Regular Rate, Rhythm Gastrointestinal: soft, distended Extremity: Normal Capillary Refill Neurologic/Psychiatric: Alert, Oriented x3 Skin: Normal Color Lymphatic: No Adenopathy Results Lab Microbiology 01/23/22 Blood Culture - Final, Complete No growth 01/23/22 Gram Stain - Final, Complete 01/23/22 Body Fluid Culture - Final, Complete No growth 01/22/22 Urine Culture - Final, Complete NO GROWTH 01/22/22 MRSA Screen - Final, Complete MRSA not isolated Assessment/Plan Assessment/Plan Assess & Plan/Chief Complaint ascites s/p laparoscopic cholecystectomy POD#40. will proceed with tunneled peritoneal catheter placement for recurrent ascites. pt made hospice. after drain placement may be transferred to SNF/hospice. SHANNAN AUSTIN MD January 31, 2022 15:02
[2022-02-01 05:48] LABS: BASOPHILS % (AUTO) 0 % (0-10); EOSINOPHILS # (AUTO) 0.1 10^3/uL (0.0-0.3); EOSINOPHILS % (AUTO) 0 % (0-10); HEMATOCRIT 33 % (35-52); HEMOGLOBIN 9.7 g/dL (11.5-16.0); LYMPHOCYTES # (AUTO) 0.5 10^3/uL (1.0-4.0); LYMPHOCYTES % (AUTO) 3 % (12-44); MEAN CORPUSCULAR HEMOGLOBIN 25 pg (25-34); MEAN CORPUSCULAR HGB CONC 30 g/dL (32-36); MEAN CORPUSCULAR VOLUME 85 fL (80-99); MEAN PLATELET VOLUME 8.6 fL (9.0-12.2); MONOCYTES # (AUTO) 0.3 10^3/uL (0.0-1.0); MONOCYTES % (AUTO) 2 % (0-12); NEUTROPHILS # (AUTO) 15.3 10^3/uL (1.8-7.8); NEUTROPHILS % (AUTO) 93 % (42-75); PLATELET COUNT 699 10^3/uL (130-400); WHITE BLOOD COUNT 16.4 10^3/uL (4.3-11.0)
[2022-02-01 06:06] LABS: POTASSIUM 4.1 MMOL/L (3.6-5.0); PROTHROMBIN TIME PATIENT 13.4 SEC (12.2-14.7)
[2022-02-01 06:07] LABS: CALCIUM 8.1 MG/DL (8.5-10.1)
[2022-02-01 06:08] LABS: TOTAL PROTEIN 4.9 GM/DL (6.4-8.2)
[2022-02-01 06:10] LABS: BILIRUBIN,TOTAL 1.3 MG/DL (0.1-1.0)
[2022-02-01 06:12] LABS: CREATININE SERUM 0.64 MG/DL (0.60-1.30)
[2022-02-01] MEDS: SENNA W/DOCUSATE (SENOKOT S) TABLET PO SCH ×2 (07:28→19:25)
[2022-02-01] MEDS: fentaNYL INJ 100 MCG/2 ML AMP IVP PRN ×2 (09:20→22:43)
[2022-02-01] MEDS ORDERED: LIDOCAINE/EPI 1%-1:200,000 (XYLOCAINE) 30 ML VIAL ONE (10:04)
--- NOTE | 2022-02-01 11:59 | Progress Note-Pre Operative ---
Pre-Operative Progress Note H&P Reviewed The H&P was reviewed, patient examined and no changes noted. Date Seen by Provider: February 01, 2022 Time Seen by Provider: 11:00 Date H&P Reviewed: Jan 22, 2022 Time H&P Reviewed: 11:00 Pre-Operative Diagnosis: recurrent sx ascites SHANNAN AUSTIN MD February 01, 2022 11:59
[2022-02-01] MEDS ORDERED: LACTATED RINGERS 1,000 ML IV PRN (12:15)
[2022-02-01] MEDS ORDERED: ceFAZolin INJECTION 1,000 MG ONE (12:18)
--- NOTE | 2022-02-01 12:43 | Progress Note-Post Operative ---
Post-Operative Progess Note Surgeon (s)/Manager Hiv (s) Surgeon SHANNAN AUSTIN MD Manager Hiv: none Pre-Operative Diagnosis recurrent sx ascites Post-Operative Diagnosis same Procedure & Operative Findings Date of Procedure 02/01/22 Procedure Performed/Findings tunneled peritoneal catheter placement. Anesthesia Type mac with local Estimated Blood Loss Estimated blood loss (mL): minimal Specimens/Packing Specimens Removed none SHANNAN AUSTIN MD February 01, 2022 12:43
[2022-02-01 12:45] VITALS: BP 83/57
--- NOTE | 2022-02-01 12:49 | Anesthesia-General Post-Op ---
MAC Patient Condition Mental Status/LOC: Same as Preop Cardiovascular: Satisfactory Nausea/Vomiting: Absent Respiratory: Satisfactory Pain: Controlled Complications: Absent Post Op Complications Complications None Follow Up Care/Instructions Patient Instructions None needed. Anesthesiology Discharge Order Discharge Order Patient is doing well, no complaints, stable vital signs, no apparent adverse anesthesia problems. No complications reported per nursing. SMUEET ADDISON CRNA February 01, 2022 12:49
[2022-02-01 12:50] VITALS: BP 94/56
[2022-02-01 13:00] VITALS: BP 83/56
[2022-02-01] MEDS ORDERED: ONDANSETRON 4 MG/2 ML (SDV) Z0FRAN IVP PRN (13:00)
[2022-02-01] MEDS ORDERED: morphine INJ 10 MG/ML 1ML (SYR OR VIAL) IVP ONE (13:00)
[2022-02-01] MEDS ORDERED: MEPERIDINE (DEMEROL) INJ 50 MG/ML IVP ONE (13:00)
[2022-02-01 13:10] VITALS: BP 104/68
[2022-02-01] MEDS: HYDROcodone/APAP 5 MG/325 MG (LORTAB) TAB PO PRN ×2 (14:54→19:38)
--- NOTE | 2022-02-01 18:30 | OPERATIVE REPORT ---
DATE OF SERVICE: 02/01/2022 ATTENDING PRIMARY CARE PHYSICIAN: Dr. Raj Don. PREOPERATIVE DIAGNOSIS: Recurrent symptomatic ascites. POSTPROCEDURE DIAGNOSIS: Recurrent symptomatic ascites. PROCEDURE: Placement of tunneled peritoneal catheter. SURGEON: Shannan Austin MD ANESTHESIA: Monitored anesthesia care with local. ESTIMATED BLOOD LOSS: Minimal. FINDINGS: Yellow, slightly turbid fluid. DISPOSITION: The patient tolerated the procedure well. INDICATIONS: The patient is a 76-year-old female who was initially referred over to us for acid indigestion and gastritis with nausea and vomiting. This was also associated with significant weight loss. An ultrasound was performed, which did show a stone wedged in the cystic duct consistent with chronic calculous cholecystitis and she underwent a laparoscopic cholecystectomy on 12/23/2021. She presented to the Emergency Department [facility] with a 1-day history of abdominal pain and distention. She was found to have an elevated white count of 32.9 and was also found to be anemic with a hemoglobin of 7.6. She is also dehydrated. Since that time, she underwent imaging, which did show significant ascites. She underwent paracentesis where a significant amount of straw yellow transudative fluid was evacuated. The patient and family wanted to proceed with [facility] facility as well as hospice care and she does have recurrent ascites and would like to have a tunneled peritoneal catheter for self-drainage. DESCRIPTION OF PROCEDURE: The patient was brought to the operating room, laid supine on the table. After adequate IV pain and sedative medications and monitored anesthesia care, the abdomen was prepped and draped in standard surgical fashion. Before the procedure, ultrasound, marked the area of the abdomen in the left lower abdominal quadrant. The abdominal wall as well as subcutaneous tissue, muscle layers as well as the peritoneal lining were anesthetized using 1% lidocaine with epinephrine. The skin and subcutaneous tissue was then anesthetized superior and laterally. Two incisions were then made and the tunneled peritoneal catheter was tunneled in the subcutaneous tissue using the tunneler. The peritoneal catheter was then accessed with cannulating needle over a sheath withdrawing of turbid yellow fluid. The cannulating needle removed, and a guidewire was then inserted without any resistance. The dilator and sheath were then placed over the guidewire without any resistance. The guidewire and the dilator were then removed, and the peritoneal catheter was placed through the sheath without any resistance. The sheath was then removed. The skin was then closed using 3-0 nylon interrupted sutures. The end of the catheter was sutured to the skin with the same suture. The catheter was accessed withdrawing of 2 liters of fluid. The patient tolerated the procedure well. We will continue with drainage as necessary. From our standpoint, she may proceed with a regular diet and be transferred to [facility] facility at any time. Job ID: [id number] DocumentID: [id number] Dictated Date: 02/01/2022 12:51:06 Music Director Date: 02/01/2022 18:29:18 Dictated By: SHANNAN AUSTIN MD [facility]
--- NOTE | 2022-02-01 20:46 | Progress Note ---
Subjective Subjective/Events-last exam Patient having increasing pain this AM. Currently NPO for catheter placement by Dr Klein. Review of Systems Gastrointestinal: Nausea, Abdominal Pain Neurological: Weakness, Incoordination Objective Exam Last Set of Vital Signs Vital Signs Date Time Temp Pulse Resp B/P (MAP) Pulse Ox O2 Delivery O2 Flow Rate FiO2 02/01/22 19:29 Nasal Cannula 2.00 02/01/22 13:10 36.8 14 104/68 (80) 100 01/29/22 07:34 97 Capillary Refill : Less Than 3 Seconds I&O Intake and Output 02/01/22 00:00 Intake Total 1185 ml Output Total 400 ml Balance 785 ml Intake Oral 1185 ml Output Urine Total 400 ml # Bowel Movements 1 General: Alert, Oriented X3, No Acute Distress Lungs: Clear to Auscultation, Normal Air Movement Abdomen: Other (+ distention and moderate ttp, normal bowel sounds) Results/Procedures Lab Laboratory Tests 02/01/22 05:42: White Blood Count 16.4H, Red Blood Count 3.87, Hemoglobin 9.7#L, Hematocrit 33L, Mean Corpuscular Volume 85, Mean Corpuscular Hemoglobin 25, Mean Corpuscular Hemoglobin Concent 30L, Red Cell Distribution Width 23.5H, Platelet Count 699H, Mean Platelet Volume 8.6L, Immature Granulocyte % (Auto) 2, Neutrophils (%) (Auto) 93H, Lymphocytes (%) (Auto) 3L, Monocytes (%) (Auto) 2, Eosinophils (%) (Auto) 0, Basophils (%) (Auto) 0, Neutrophils # (Auto) 15.3H, Lymphocytes # (Auto) 0.5L, Monocytes # (Auto) 0.3, Eosinophils # (Auto) 0.1, Basophils # (Auto) 0.0, Immature Granulocyte # (Auto) 0.2H, Prothrombin Time 13.4, INR Comment 1.0, Sodium Level 136, Potassium Level 4.1, Chloride Level 108H, Carbon Dioxide Level 20L, Anion Gap 8, Blood Urea Nitrogen 11, Creatinine 0.64, Estimat Glomerular Filtration Rate 90, BUN/Creatinine Ratio 17, Glucose Level 111H, Calcium Level 8.1L, Corrected Calcium 9.7, Total Bilirubin 1.3H, Aspartate Amino Transf (AST/SGOT) 17, Alanine Aminotransferase (ALT/SGPT) 9, Alkaline Ph osphatase 398H, Total Protein 4.9L, Albumin 2.0L Microbiology 01/23/22 Blood Culture - Final, Complete No growth 01/23/22 Gram Stain - Final, Complete 01/23/22 Body Fluid Culture - Final, Complete No growth 01/22/22 Urine Culture - Final, Complete NO GROWTH 01/22/22 MRSA Screen - Final, Complete MRSA not isolated Assessment/Plan Assessment/Plan (1) Spontaneous bacterial peritonitis Status: Acute Assessment & Plan: 01/31: Continue to cover for infection, cultures thus far are negative 02/01: Ctxs continue to be neg (2) Ascites of liver Status: Acute Assessment & Plan: 01/31: Plan for pleur-ex drain placement tomorrow by Dr Klein 02/01: Drain placed today, working on SNF placement at d/c (3) Cirrhosis Status: Chronic Qualifiers: Qualified Codes: K74.69 - Other cirrhosis of liver (4) Normocytic anemia Status: Acute Assessment & Plan: 01/31: Stable, no signs of acute bleeding, INR 1.3 (5) Severe protein-calorie malnutrition Status: Chronic (6) H/O malignant neoplasm of breast (7) Discharge planning issues Assessment & Plan: 01/31: Plan for SNF placement, PT ordered today, family reasonable and understand the advanced stage of disease and have considered hospice PILO CROUCH MD February 01, 2022 20:46
[2022-02-01] MEDS: ONDANSETRON 4 MG/2 ML (SDV) Z0FRAN IVP PRN (21:09)
[2022-02-02] MEDS: MELATONIN 3 MG TABLET PO PRN (00:27)
[2022-02-02] MEDS: HYDROcodone/APAP 5 MG/325 MG (LORTAB) TAB PO PRN ×3 (03:44→13:45)
[2022-02-02] MEDS: fentaNYL INJ 100 MCG/2 ML AMP IVP PRN ×2 (03:44→10:50)
[2022-02-02] MEDS: SENNA W/DOCUSATE (SENOKOT S) TABLET PO SCH (08:29)
--- NOTE | 2022-02-02 10:15 | Discharge Inst-Skilled Nursing ---
Discharge Inst-Skilled NF Reconcile Patient Problems Problems Reviewed?: Yes Consult/Follow Up/Orders Skilled NF Admit to: [facility] Certification (SNF) I certify that SNF services are required to be given on an inpatient basis because of the above named patient's need for [facility] care on a continuing basis for the conditions(s) for which he/she was receiving inpatient hospital services prior to his/her transfer to the SNF. [facility] Order: Nursing Services, Combiner Operator-Evaluate & Treat, Physical Therapy-Evaluate & Treat, Other (drain peritoneal catheter when symptomatic(recurrent ascites with abd distention)until asymptomatic PRN) Oxygen Delivery Method: Nasal Cannula Discharge Diet: No Restrictions Daily Activity as Tolerated: Yes Type of Care: Comfort Measures New & Resume Previous Orders Other Instructions Follow up with dr. austin in 2 weeks, call office for appt([phone]). wound/drain care: gauze followed by large opsite to cover entry site and drainage catheter daily. Shannan Austin February 02, 2022 10:07 SHANNAN AUSTIN MD February 02, 2022 10:12
[2022-02-02] MEDS: fentaNYL PATCH 12 MCG (DURAGESIC) TD SCH (13:05)
[2022-02-02] MEDS ORDERED: MORP-68 PO ×2 (13:54)
[2022-02-02] MEDS ORDERED: ANAS1TAB50 PO (13:59)
[2022-02-02] MEDS ORDERED: BACL10TA PO (13:59)
--- NOTE | 2022-02-02 18:22 | Progress Note ---
Subjective Subjective/Events-last exam Patient feeling much better this AM after procedure and she is ready to go to SNF Review of Systems Gastrointestinal: Abdominal Pain Neurological: Weakness, Incoordination Objective Exam Last Set of Vital Signs Vital Signs Date Time Temp Pulse Resp B/P (MAP) Pulse Ox O2 Delivery O2 Flow Rate FiO2 02/02/22 14:48 02/02/22 10:15 Nasal Cannula 02/02/22 08:37 2.00 02/01/22 13:10 36.8 14 100 01/29/22 07:34 97 Capillary Refill : Less Than 3 Seconds I&O Intake and Output 02/02/22 00:00 Intake Total 1270 ml Output Total 300 ml Balance 970 ml Intake Oral 270 ml IV Total 1000 ml Output Urine Total 300 ml General: Alert, Oriented X3, No Acute Distress Lungs: Clear to Auscultation, Normal Air Movement Heart: Regular Rate, No Murmurs Abdomen: Normal Bowel Sounds, Soft, Other (mild ttp, no rebound or guarding) Results/Procedures Lab Microbiology 01/23/22 Blood Culture - Final, Complete No growth 01/23/22 Gram Stain - Final, Complete 01/23/22 Body Fluid Culture - Final, Complete No growth 01/22/22 Urine Culture - Final, Complete NO GROWTH 01/22/22 MRSA Screen - Final, Complete MRSA not isolated Assessment/Plan Assessment/Plan (1) Spontaneous bacterial peritonitis Status: Acute Assessment & Plan: 01/31: Continue to cover for infection, cultures thus far are negative 02/01: Ctxs continue to be neg (2) Ascites of liver Status: Acute Assessment & Plan: 01/31: Plan for pleur-ex drain placement tomorrow by Dr Klein 02/01: Drain placed today, working on SNF placement at d/c 02/02: Drain in place, pain is better controlled, ready for d/c today for SNF (3) Cirrhosis Status: Chronic Qualifiers: Qualified Codes: K74.69 - Other cirrhosis of liver (4) Normocytic anemia Status: Acute Assessment & Plan: 01/31: Stable, no signs of acute bleeding, INR 1.3 (5) Severe protein-calorie malnutrition Status: Chronic (6) H/O malignant neoplasm of breast (7) Discharge planning issues Assessment & Plan: 01/31: Plan for SNF placement, PT ordered today, family reasonable and understand the advanced stage of disease and have considered hospice GAULT,PILO R MD February 02, 2022 18:22
== END 2022-02-02 14:50 | DRG 871 ==
LOC: ICU 19:13 → 4TH 01-23 15:03
PROVIDERS: ADMIT Surgery; ATTEND Surgery
PROC: 0W9G30Z Drainage of Peritoneal Cavity with Drainage Device, Percutaneous Approach (ICD-10-PCS; principal; 2022-01-23)
DX: A41.9 Sepsis, unspecified organism (principal); K65.2 Spontaneous bacterial peritonitis; J96.01 Acute respiratory failure with hypoxia; E43 Unspecified severe protein-calorie malnutrition; R18.8 Other ascites; R64 Cachexia; J44.1 Chronic obstructive pulmonary disease with (acute) exacerbation; K74.60 Unspecified cirrhosis of liver; Z68.27 Body mass index [BMI] 27.0-27.9, adult; Z66 Do not resuscitate; Z51.5 Encounter for palliative care; L89.152 Pressure ulcer of sacral region, stage 2; I10 Essential (primary) hypertension; D64.9 Anemia, unspecified; E78.00 Pure hypercholesterolemia, unspecified; M19.91 Primary osteoarthritis, unspecified site; H54.7 Unspecified visual loss; Z87.891 Personal history of nicotine dependence; Z85.3 Personal history of malignant neoplasm of breast; Z98.1 Arthrodesis status
CPT/HCPCS: 36415; 71045; 74018; 74176; 76942; 80053; 81000; 82150; 82805; 82945; 82947; 83605; 83615; 83735; 83986; 84100; 84157; 85007; 85025; 85027; 85610; 86850; 86870; 86900; 86901; 86922; 87040; 87070; 87081; 87088; 87205; 88112; 88305; 89051; 94640; 94760